=== PATIENT | female | born 1945 | race Caucasian/White ===

== ENCOUNTER → 2016-10-29 | Outpatient (CLI) | payer OTHER ==
[~2016-10-29] MED LIST: ASPEC325; CLOP1TAB15; LISI40TA; METO50TA7; PRAV20TA; PRT/20; TRAM-10
[2016-10-29 12:54] LABS: ESTIMATED AVERAGE GLUCOSE 137 mg/dl; HA1C FLAG Normal (Normal)
== END | disposition home or self-care (01) ==
LOC: C.LABBFT 10:20
PROVIDERS: ATTEND Internal Medicine
DX: E11.8 Type 2 diabetes mellitus with unspecified complications (principal)

== ENCOUNTER → 2017-03-10 | Outpatient (CLI) | payer OTHER ==
[2017-03-10 13:39] LABS: ESTIMATED AVERAGE GLUCOSE 134 mg/dl; HA1C FLAG Normal (Normal)
== END | disposition home or self-care (01) ==
LOC: C.LAB1850 11:30
PROVIDERS: ATTEND Nurse Practitioner Adult Health
DX: E11.49 Type 2 diabetes mellitus with other diabetic neurological complication (principal)

== ENCOUNTER → 2017-04-28 | Outpatient (CLI) | payer OTHER ==
[2017-04-28 12:48] LABS: ALT/SGPT 32 U/L (12-78); AST/SGOT 26 U/L (15-37); BLOOD UREA NITROGEN 33 mg/dl (7-18); BUN/CREATININE RATIO 29.9 (10-20); CALCIUM 9.1 mg/dl (8.5-10.1); CARBON DIOXIDE 27 mmol/L (21-32); CHLORIDE 108 mmol/L (98-107); CHOLESTEROL 147 mg/dl (0-200); GLUCOSE 101 mg/dl (70-99); POTASSIUM 4.9 mmol/L (3.5-5.1); SODIUM 140 mmol/L (136-145)
[2017-04-28 13:00] LABS: CHOLESTEROL/HDL RATIO 3.5; HDL CHOLESTEROL 42 mg/dl; LDL CHOLESTEROL CALCULATED 71 mg/dl; TRIGLYCERIDES 168 mg/dl (0-150); VERY LOW DENSITY LIPOPROT CALC 34 mg/dl
== END | disposition home or self-care (01) ==
LOC: C.LABBFT 07:52
PROVIDERS: ATTEND Internal Medicine
DX: E03.9 Hypothyroidism, unspecified (principal); E78.5 Hyperlipidemia, unspecified; E11.49 Type 2 diabetes mellitus with other diabetic neurological complication

== ENCOUNTER → 2017-04-29 | Outpatient (CLI) | payer OTHER ==
--- NOTE | 2017-04-29 13:55 | DIAGNOSTIC IMAGING REPORT ---
LUMBAR SPINE W/O CONTRAST CLINICAL HISTORY: 72 years-old Female presenting with low back pain, bilateral hip pain radiating down both legs, history of 2 falls in February, no surgery, no history of cancer. TECHNIQUE: Multisequence, multiplanar MR imaging of the lumbar spine was performed without the use of intravenous contrast. IV contrast: None. COMPARISON: None. FINDINGS: Localizer images: Unremarkable. Slightly exaggerated lumbar lordosis with minimal anterolisthesis of L4 on L5. Vertebral bodies otherwise maintain normal height, alignment, and bone marrow signal intensity. Disc desiccation without significant height loss noted at L3-4 and L4-5. Slight increase signal intensity within the intervertebral disc space of L5-S1, nonspecific without evidence of associated endplate edema or paraspinal inflammatory change. Mild multilevel degenerative changes detailed below: Lower thoracic spine: Disc osteophyte complexes resulting in mild effacement of the ventral thecal sac and contouring of the ventral aspect of the cord without impingement. T12-L1: Anterior osteophytosis. No spinal canal or neural foraminal narrowing.. L1-2: Anterior osteophytosis. No spinal canal or neural foraminal narrowing. L2-3: Normal. L3-4: Minimal disc bulge at L3-4 in combination with mild ligamentum flavum thickening and facet arthropathy results in mild circumferential effacement of the thecal sac without evidence of impingement of the cauda equina. Mild bilateral neural foraminal narrowing results. L4-5: Normal. L5-S1: Minimal right eccentric disc bulge at L5-S1 and mild facet arthropathy result in mild right neural foraminal narrowing at L5-S1. Spinal cord ends in good position at inferior endplate of T12. Cauda equina normal. Paraspinal soft tissues normal. Nonspecific subcutaneous edema noted in the lower lumbar region. IMPRESSION: Minimal degenerative changes resulting in mild bilateral neural foraminal narrowing at L3-4 and mild right neural foraminal narrowing at L5-S1. No spinal canal narrowing. Electronically signed by: Nahun Russell M.D. 04/29/2017 1:53 PM Dictated Date/Time: 04/29/2017 1:44 PM
== END | disposition home or self-care (01) ==
LOC: C.MRI 12:43
PROVIDERS: ATTEND Orthopaedic Surgery Orthopaedic Surgery of the Spine
DX: M48.06 Spinal stenosis, lumbar region (principal); Z12.31 Encounter for screening mammogram for malignant neoplasm of breast

== ENCOUNTER → 2017-04-29 | Outpatient (CLI) | payer OTHER ==
--- NOTE | 2017-04-29 12:44 | MAMMOGRAPHY REPORT ---
BILATERAL DIGITAL SCREENING MAMMOGRAM WITH CAD: 04/29/2017 CLINICAL HISTORY: Routine screening. Patient has no complaints. TECHNIQUE: Bilateral CC and MLO views were obtained. Current study was also evaluated with a Compute r Aided Detection (CAD) system. COMPARISON: Comparison is made to exams dated: 03/20/2016 mammogram, 03/16/2014 mammogram, 03/25/2012 [facility] [address], 03/20/2009, and 08/16/2007. BREAST COMPOSITION: There are scattered areas of fibroglandular density in both breasts. FINDINGS: There are a few scattered stable benign-appearing round and punctate microcalcifications in the breasts. Minimal vascular calcification. No suspicious mass, architectural distortion or clust er of suspicious microcalcifications is seen. IMPRESSION: ACR BI-RADS CATEGORY 1: NEGATIVE There is no mammographic evidence of malignancy. A 1 year screening mammogram is recommended. The pa tient will receive written notification of the results. Approximately 10% of breast cancers are not detected with mammography. A negative mammographic report should not delay biopsy if a clinically suggestive mass is present. Jacqueline Reis M.D. ay/:04/29/2017 11:32:48 Field Sales Trainer: Ronit Hoang, [facility] letter sent: Normal 1/2 BI-RADS Code: ACR BI-RADS Category 1: Negative
== END | disposition home or self-care (01) ==
LOC: C.MAMM 10:57
PROVIDERS: ATTEND Internal Medicine
DX: Z12.31 Encounter for screening mammogram for malignant neoplasm of breast (principal)

== ENCOUNTER → 2017-07-03 | Outpatient (CLI) | payer OTHER ==
[2017-07-03 13:01] LABS: ESTIMATED AVERAGE GLUCOSE 128 mg/dl; HA1C FLAG Normal (Normal)
== END | disposition home or self-care (01) ==
LOC: C.LABBFT 10:41
PROVIDERS: ATTEND Nurse Practitioner Adult Health
DX: E11.49 Type 2 diabetes mellitus with other diabetic neurological complication (principal); Z51.81 Encounter for therapeutic drug level monitoring; Z79.4 Long term (current) use of insulin

== ENCOUNTER → 2017-11-26 | Outpatient (CLI) | payer OTHER ==
[~2017-11-26] MED LIST changes: -METO50TA7; +METO50TA8
[2017-11-26 13:16] LABS: ALT/SGPT 23 U/L (12-78); BLOOD UREA NITROGEN 30 mg/dl (7-18); CALCIUM 9.3 mg/dl (8.5-10.1); CARBON DIOXIDE 26 mmol/L (21-32); CHOLESTEROL 140 mg/dl (0-200); CREATININE 1.01 mg/dl (0.60-1.20); GLUCOSE 119 mg/dl (70-99); POTASSIUM 4.7 mmol/L (3.5-5.1); SODIUM 140 mmol/L (136-145)
[2017-11-26 13:20] LABS: HEMOGLOBIN A1C 6.7 % (4.5-5.6)
[2017-11-26 13:30] LABS: AST/SGOT 21 U/L (15-37); LDL CHOLESTEROL CALCULATED 65 mg/dl
== END | disposition home or self-care (01) ==
LOC: C.LABBFT 09:05
PROVIDERS: ATTEND Nurse Practitioner Adult Health
DX: I10 Essential (primary) hypertension (principal); E11.49 Type 2 diabetes mellitus with other diabetic neurological complication; E78.5 Hyperlipidemia, unspecified; E03.9 Hypothyroidism, unspecified

== ENCOUNTER → 2017-12-03 | Outpatient (CLI) | payer OTHER ==
[2017-12-03 14:10] LABS: CREATININE RANDOM URINE 41.8 mg/dl
== END | disposition home or self-care (01) ==
LOC: C.LABBFT 11:21
PROVIDERS: ATTEND Nurse Practitioner Adult Health
DX: I10 Essential (primary) hypertension (principal); E11.49 Type 2 diabetes mellitus with other diabetic neurological complication; Z79.4 Long term (current) use of insulin

== ENCOUNTER → 2017-12-28 | Outpatient (CLI) | payer OTHER ==
--- NOTE | 2017-12-28 10:02 | DIAGNOSTIC IMAGING REPORT ---
L HAND MIN 3 VIEWS ROUTINE CLINICAL HISTORY: Bilateral hand pain. COMPARISON: None FINDINGS: Alignment of left hand is anatomic. No fracture or suspicious lesion is identified. No erosions are identified by radiography. There is moderate joint space narrowing with osteophytosis of multiple interphalangeal joints within the left hand, most pronounced at the second digit PIP joint and third, fourth and fifth digit PIP joints. There is moderate osteoarthritis of the left first carpometacarpal joint. IMPRESSION: 1. No acute fracture. 2. 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 3. No radiographic evidence of an erosive/inflammatory arthropathy. Electronically signed by: Priyank Still M.D. 12/28/2017 10:01 AM Dictated Date/Time: 12/28/2017 9:59 AM
[2017-12-28 10:33] LABS: CALCIUM 9.6 mg/dl (8.5-10.1)
== END | disposition home or self-care (01) ==
LOC: C.RAD1850 09:23
PROVIDERS: ATTEND Internal Medicine Rheumatology
DX: M11.261 Other chondrocalcinosis, right knee (principal); M85.80 Other specified disorders of bone density and structure, unspecified site; E55.9 Vitamin D deficiency, unspecified; M25.561 Pain in right knee; M79.641 Pain in right hand; M19.042 Primary osteoarthritis, left hand

== ENCOUNTER → 2018-05-05 | Outpatient (CLI) | payer OTHER ==
--- NOTE | 2018-05-06 14:57 | MAMMOGRAPHY REPORT ---
BILATERAL DIGITAL SCREENING MAMMOGRAM TOMOSYNTHESIS WITH CAD: 05/05/2018 CLINICAL HISTORY: Routine screening. Patient has no complaints. TECHNIQUE: The study was acquired using full field digital technology and interpreted from soft copy. Breast tomosynthesis in addition to standard 2D mammography was performed. Current study was also ev aluated with a Computer Aided Detection (CAD) system. COMPARISON: Comparison is made to exams dated: 04/29/2017 mammogram, 03/20/2016 mammogram, 03/16/2014 m ammogram, 03/25/2012 mammogram - [facility], 03/20/2009, and 08/16/2007. BREAST COMPOSITION: There are scattered areas of fibroglandular density in both breasts. FINDINGS: No suspicious masses, calcifications, or areas of architectural distortion are noted in either breast . There has been no significant interval change compared to prior exams. Scattered bilateral benign-a ppearing calcifications are not significantly changed. IMPRESSION: ACR BI-RADS CATEGORY 2: BENIGN There is no mammographic evidence of malignancy. A 1 year screening mammogram is recommended.( [id number]) The patient will receive written notification of the results. Some breast cancers are not detected with mammography. A negative mammographic report should not alayna y biopsy if a clinically suggestive mass is present. Ally Maddox M.D. ah/:05/05/2018 15:35:35 Director Strategic Planning: Ne Correa RT(R)(M), [facility] letter sent: Normal 1/2 BI-RADS Code: ACR BI-RADS Category 2: Benign
== END | disposition home or self-care (01) ==
LOC: C.MAMM 10:38
PROVIDERS: ATTEND Internal Medicine
DX: Z12.31 Encounter for screening mammogram for malignant neoplasm of breast (principal)

== ENCOUNTER → 2018-05-24 | Outpatient (CLI) | payer OTHER ==
[2018-05-24 13:43] LABS: HEMOGLOBIN A1C 7.1 % (4.5-5.6)
[2018-05-24 14:00] LABS: ALT/SGPT 24 U/L (12-78); AST/SGOT 18 U/L (15-37); BLOOD UREA NITROGEN 33 mg/dl (7-18); CARBON DIOXIDE 24 mmol/L (21-32); CHOLESTEROL 146 mg/dl (0-200); GLUCOSE 113 mg/dl (70-99); LDL CHOLESTEROL CALCULATED 59 mg/dl; POTASSIUM 4.9 mmol/L (3.5-5.1); SODIUM 138 mmol/L (136-145)
[2018-05-24 14:15] LABS: CREATININE RANDOM URINE 80.3 mg/dl
== END | disposition home or self-care (01) ==
LOC: C.LABBFT 10:20
PROVIDERS: ATTEND Internal Medicine
DX: I10 Essential (primary) hypertension (principal); E11.49 Type 2 diabetes mellitus with other diabetic neurological complication; Z79.4 Long term (current) use of insulin; E78.5 Hyperlipidemia, unspecified; E03.9 Hypothyroidism, unspecified

== ENCOUNTER 2024-05-25 12:28 | Observation (INO) ==
--- NOTE | 2024-05-25 13:03 | Electrocardiogram Report ---
Test Reason : Blood Pressure : */* mmHG Vent. Rate : 75 BPM Atrial Rate : 75 BPM P-R Int : 150 ms QRS Dur : 82 ms QT Int : 402 ms P-R-T Axes : 59 34 59 degrees QTcB Int : 448 ms Normal sinus rhythm Normal ECG When compared with ECG of 20-Jun-2021 09:39, No significant change Confirmed by Margarito Martins ([id number]) on 05/25/2024 1:02:51 PM Referred By: Confirmed By: Margarito Martins
--- NOTE | 2024-05-25 14:09 | XRay Report ---
SINGLE VIEW CHEST CLINICAL HISTORY: Sepsis FINDINGS: An AP, portable, upright chest radiograph is compared to study dated 06/17/2021. The heart i s enlarged. There is prominence of the pulmonary vasculature. Scarring/atelectasis is seen at the cari g bases. No airspace consolidation or large pleural effusion is identified. No pneumothorax is seen. The skeletal structures are osteopenic. There is chronic deformity of the left proximal humerus. A pu nctate radiodense/metallic foreign body projects over the right apex. IMPRESSION: 1. Cardiomegaly with prominence of the pulmonary vasculature. Correlate clinically for evidence of fl uid overload/mild congestive change. 2. No airspace consolidation or large pleural effusion is identified. ACT 112: Negative or not required by law. Electronically signed by: Eber Duran M.D. 05/25/2024 2:07 PM
[2024-05-25 14:41] LABS: iSTAT Creatinine 2.2 mg/dl (0.6-1.3); iSTAT Hemoglobin 11.6 g/dl (12.0-16.0); iSTAT Ionized Calcium 1.36 mmol/l (1.12-1.32); iSTAT Potassium 4.5 mmol/L (3.3-5.0)
[2024-05-25 14:53] LABS: Base Excess VBG -0.4 mEq/L; HCO3 VBG 26 mmol/L; Oxygen Saturation VBG 60.6 %; PCO2 VBG 48 mmHg (38-50); PO2 VBG 34 mmHg; pH VBG 7.34 (7.36-7.41)
[2024-05-25 15:04] LABS: Basophils # (auto) 0.05 K/uL (0.00-0.20); Basophils % (auto) 0.7 %; Eosinophils # (auto) 0.69 K/uL (0.00-0.50); Hemoglobin 10.7 g/dl (12.0-16.0); Immature Granulocytes # (auto) 0.35 K/uL (0.01-0.20); Immature Granulocytes % (auto) 4.6 %; Lymphocytes # (auto) 2.17 K/uL (1.20-3.40); Lymphocytes % (auto) 28.2 %; Mean Corpuscular Hemoglobin 30.1 pg (25.0-34.0); Mean Corpuscular Hgb Conc 32.4 g/dL (32.0-36.0); Mean Corpuscular Volume 92.7 fL (80.0-100.0); Mean Platelet Volume 10.3 fL (9.4-12.4); Monocytes # (auto) 0.38 K/uL (0.11-0.59); Monocytes % (auto) 4.9 %; Neutrophils # (auto) 4.05 K/uL (1.40-6.50); Neutrophils % (auto) 52.6 %; Platelet Count 195 K/uL (130-400); RDW Coefficient of Variation 14.5 % (11.5-14.5); RDW Standard Deviation 49.2 fL (36.4-46.3); Red Blood Count 3.56 M/uL (4.20-5.40); White Blood Count 7.69 K/ul (4.8-10.8)
--- NOTE | 2024-05-25 15:14 | CT Scan Report ---
CT SCAN OF THE BRAIN WITHOUT IV CONTRAST CLINICAL HISTORY: Generalized weakness. COMPARISON STUDY: No priors. TECHNIQUE: Unenhanced axial CT scan of the brain is performed from the vertex to the skull base. A do se lowering technique was utilized adhering to the principles of ALARA. FINDINGS: Brain parenchyma: There is age-related involutional change noting moderate subcortical and periventri cular microangiopathic disease. There is no hemorrhage, mass effect, or evidence of acute territorial ischemia by CT criteria. Cloud-white matter differentiation is preserved. No extra-axial fluid collec tion is seen. Ventricles, sulci, cisterns: Prominent secondary to involutional change. Intracranial vasculature: There is atherosclerotic calcification of the cavernous carotid and vertebr al arteries. Calvarium: Unremarkable. Sinuses and mastoids: A 1.8 cm retention cyst is seen in the left maxillary antrum. The paranasal sin uses are otherwise clear. There are trace mastoid effusions. Orbits: The bony orbits are grossly intact. There are bilateral ocular lens implants. IMPRESSION: There is no hemorrhage, mass effect, or evidence of acute territorial ischemia by CT aftab toney. ACT 112: Negative or not required by law. Electronically signed by: Eber Duran M.D. 05/25/2024 3:12 PM
[2024-05-25 15:17] LABS: Albumin Globulin Ratio 1.1 (0.9-2); Albumin Level 3.6 gm/dl (3.4-5.0); BUN Creatinine Ratio 36.8 (10-20); Bilirubin,Total 0.5 mg/dl (0.2-1.0); Calcium 10.6 mg/dl (8.6-10.3); Creatinine Clr Calc Pharmacy 22.3 ml/min; Est GFR (African American) 24.7 ml/min; Est GFR (Non-African American) 21.3 ml/min; Globulin 3.3 gm/dl (2.5-4.0); Magnesium 2.6 mg/dl (1.7-2.4); Potassium 4.4 mmol/L (3.5-5.1); Total Protein 6.9 gm/dl (6.0-8.3)
[2024-05-25 15:23] LABS: Troponin I High Sensitivity 8.2 pg/ml (0-14)
--- NOTE | 2024-05-25 15:28 | CT Scan Report ---
CT SCAN OF THE ABDOMEN AND PELVIS WITHOUT IV CONTRAST CLINICAL HISTORY: Generalized abdominal pain. Dysuria. Renal insufficiency COMPARISON STUDY: Abdominal ultrasound dated 06/27/2020. TECHNIQUE: CT scan of the abdomen and pelvis is performed from the lung bases to the proximal femora. Images are reviewed in the axial, sagittal, and coronal planes. IV contrast was not administered for this examination due to poor renal function. Note that the examination is suboptimal without oral an d IV contrast. A dose lowering technique was utilized adhering to the principles of ALARA. CT DOSE: 1950.21 mGy.cm FINDINGS: Lung bases: The heart is normal in size and without pericardial effusion. The coronary arteries are d ensely calcified. The lung bases are clear noting bibasilar scarring/atelectasis. Dermal thickening a nd presumed postsurgical change is noted in the left breast. Liver: The unenhanced liver is enlarged, measuring 18.3 cm in length. Attenuation is diffusely dimini shed indicating steatosis. Fatty sparing is seen adjacent to the gallbladder fossa. There is no intra hepatic biliary ductal dilatation. Gallbladder: Unremarkable. Spleen: Normal in size and attenuation. Pancreas: The unenhanced pancreas is atrophic and grossly unremarkable. Adrenal glands: Unremarkable. Kidneys: The unenhanced kidneys demonstrate cortical atrophy and are without hydronephrosis. No renal calculi are identified and no ureteral stone is seen. A 12 mm complex/hyperdense left renal cyst is seen on image #110. There is mild urothelial thickening in the left renal pelvis with surrounding inf iltration seen on axial image #124. Abdominal vasculature: The abdominal aorta is normal in course and caliber noting advanced atheroscle rotic calcification. Bowel: There is no bowel obstruction. Mild fecal retention is seen throughout the colon. The appendix is not identified and reported surgically absent. Peritoneum: There is no intraperitoneal free air or abdominal ascites. There is a fat-containing umbi lical hernia. Lymphadenopathy: None. Pelvic viscera: The bladder, uterus, and adnexa are normal as visualized. Skeletal structures: The skeletal structures are osteopenic. There is moderate lumbosacral spondylosi s. No lytic or blastic lesions are seen. IMPRESSION: 1. There is urothelial thickening in the left renal pelvis with mild surrounding infiltration. Correl ate with clinical findings and urinalysis. If warranted this could be reassessed with a follow-up CT urogram in 3-4 months time. 2. Hepatomegaly and hepatic steatosis. 3. Postsurgical change is suggested in the left breast with overlying dermal thickening. Correlate cl inically. 4. Additional findings as above. ACT 112: Negative or not required by law. Electronically signed by: Eber Duran M.D. 05/25/2024 3:26 PM
[2024-05-25 15:30] LABS: INR 0.9 (0.9-1.1); Partial Thromboplastin Time 28 Seconds (21-31); Prothrombin Time 10.3 Seconds (9.0-12.0)
--- NOTE | 2024-05-25 15:59 | History & Physical Report ---
Date of Service May 25, 2024 Assessment & Plan (1) Acute kidney injury superimposed on CKD: Plan: Admit to [facility] telemetry on pulse oximetry Currently stable and nontoxic-appearing Presented to the ED from her PCPs office with multiple complaints over the past 5 days including generalized weakness, poor oral intake, suprapubic abdominal pain Creatinine noted to be 2.12 today (baseline appears to be near 1.4) Does appear dehydrated on exam Likely due to poor oral intake along with continuing home furosemide and lisinopril No signs of obstruction on CT of the abdomen pelvis Will give light LR at 80 mL/h x 1 bag on admission, hold furosemide for now Will follow UA results as a sample was just obtained prior to admission, high suspicion for UTI Hold lisinopril, dapagliflozin Bilateral SCDs for DVT prophylaxis Heart healthy/DM type II diet with 2 g sodium restriction AM CBC, CMP, mag, PT/INR (2) Generalized weakness: Plan: Patient has been experiencing increased fatigue/generalized weakness over the past 5 days Pathology is likely multifactorial including poor oral intake, MISSY, possible UTI No leukocytosis but Pro-Krzysztof is elevated at 1.50 No focal neuro defects on exam, CT of the head and brain without contrast was negative for acute findings Patient's hemoglobin is down at 10.7 from 11.3 on 05/17/2024, BUN is elevated at 78, patient denies recent signs of GI bleeding but cannot rule out at this time Will obtain anemia workup including iron studies, B12/folic acid Will obtain blood cultures due to significant increase in procalcitonin and h igh suspicion for possible urinary tract infection Will follow UA and order IV antibiotics based on results Will obtain COVID/influenza/RSV screen on admission due to her ongoing symptoms Fall/aspiration precautions, PT/OT consults (3) Constipation: Plan: Patient denies bowel movement for the past 3 days Patient confirms still passing gas, no signs of obstruction on CT abdomen pelvis today Will give IV hydration overnight Start twice daily Colace and daily MiraLAX (4) Chronic heart failure with preserved ejection fraction (HFpEF): Plan: Appears dehydrated on exam Hold home Lasix for now and will give light LR x 1 bag overnight Monitor daily volume status (5) Diabetes mellitus due to underlying condition with diabetic chronic kidney disease: Plan: Monitor BSG ACHS, goal is [id number] Hold metformin, Jardiance, and Farxiga for now Normally takes 40 units p.m. degludec, will start with 10 units twice daily of glargine due to her MISSY and poor oral intake Start CF 50 and CR 15 ACHS for now (6) CAD (coronary artery disease): Plan: No recent chest pain, no acute ST segment T wave changes on EKG Continue home aspirin (7) Hypertension: Plan: Currently stable Can continue home amlodipine and metoprolol Hold lisinopril with MISSY Hold furosemide with dehydration and Plan Patient was discussed Dr. Veliz at the time of admission History of Present Illness Chief Complaint: Generalized weakness, poor oral intake, Primary Care Provider: Bashir Garcia MD Farida is a 79 y/o F with a PMH of hyperlipidemia, type II DM, diabetic neuropathy, CKD, CAD, hypothyroidism, GERD, gout, lumbar spondylosis, and vitamin D deficiency who presented to [facility] ED on 05/25/2024 with multiple complaints including generalized weakness, poor p.o. intake, abdominal pain, and back pain. Patient was reportedly recently treated with Macrobid for possible UTI outpatient. She remained stable in the ED. Labs were significant for creatinine of 2.1 baseline is near 1.4), BUN of 78, calcium of 10.6, mag of 2.6, Pro-Krzysztof 1.50. Chest x-ray was read as cardiomegaly with prominence of pulmonary vascular. Correlate clinically for evidence of fluid overload/mild congestive change. No airspace consolidation or large pleural effusion is identified. CT of the head and brain without contrast was read as negative for acute findings. CT abdomen pelvis without contrast was read as urothelial thickening in the left renal pelvis with mild surrounding infiltration. Correlate with clinical findings and urinalysis. If warranted this could be reassessed with a follow-up CT urogram in 3 to 4 months time. Hep atomegaly and hepatic steatosis. Postsurgical changes suggested in the left breast with overlying dermal thickening. Correlate clinically. Additional findings as above. Prior to admission the patient was ordered 500 mg p.o. ciprofloxacin. Patient was lying in bed in no acute distress at time of exam with her daughter bedside, history is obtained from both. Over the past 5 to 6 days the patient has been experiencing progressive generalized weakness, suprapubic abdominal pain, poor appetite, and chills. Complete a 5-day course of Macrobid yesterday (05/24/2024), for possible UTI. Patient confirms that her symptoms have not improved since completing his course of Macrobid. No recent fevers, chest pain, shortness of breath, orthopnea, cough, nausea/vomiting, lower extremity swelling, or recent trauma. When asked, she does feel as though she is still experiencing dysuria and increased urinary frequency and states that she has been constipated over the past 4 days. Denies recent melena, or bright bloody bowel movements. Still passing gas and has been taking stool softener over the past 3 days. We discussed CODE STATUS, she wishes to be a DNR DNI and for daughter to make medical decisions for her if she cannot make them herself. Please refer to Dr. Veliz's attestation for any changes to the treatment plan Allergies Allergy/AdvReac Type Severity Reaction Status Date / Time cefdinir Allergy Intermediate Rash Verified 05/25/24 10:59 latex Allergy Intermediate Rash Verified 05/25/24 10:59 atorvastatin [From Lipitor] AdvReac Intermediate Joint Pain Verified 05/25/24 10:59 ezetimibe [From Vytorin] AdvReac Intermediate LEG PAIN Verified 05/25/24 10:59 simvastatin AdvReac Intermediate LEG Verified 05/25/24 10:59 PAIN/COULD NOT WALK tramadol AdvReac Intermediate constipatio Verified 05/25/24 10:59 n Home Medications Medication Instructions Recorded Confirmed Type cholecalciferol (vitamin D3) 25 1,000 units PO QAM 04/28/19 05/25/24 History mcg (1,000 unit) capsule vit A 1,000 unit-C 60 mg-E 30 1 tab PO QAM 04/28/19 05/25/24 History unit-zinc oxid-selenium AA-copper tablet (Vision Formula(E-L-R-Zn-Se-Cu)) aspirin 81 mg tablet,delayed 81 mg PO HS 06/18/21 05/25/24 History release (Adult Low Dose Aspirin) anastrozole 1 mg tablet 1 mg PO QAM 09/06/21 05/25/24 History calcium carbonate (Calcium 600) 600 mg PO QAM 09/06/21 05/25/24 History OneTouch Verio Flex meter #1 ea 09/08/21 05/19/24 Rx (blood-glucose meter) OneTouch Verio test strips (blood #400 ea 09/08/21 05/19/24 Rx sugar diagnostic) famotidine 20 mg tablet 20 mg PO QPM #100 tabs 03/23/23 05/25/24 Rx omeprazole 20 mg capsule,delayed 20 mg PO QAM #100 caps 03/23/23 05/25/24 Rx release amlodipine 5 mg tablet 5 mg PO QAM #100 tabs 05/08/23 05/25/24 Rx BD Ultra-Fine Shante Pen Needle 32 #400 ea 05/19/23 05/19/24 Rx gauge x 5/32" (pen needle, diabetic) metoprolol succinate 50 mg 50 mg PO QAM #100 tabs 05/26/23 05/25/24 Rx tablet,extended release 24 hr gabapentin 400 mg capsule 400 mg PO TID #270 caps 06/23/23 05/25/24 Rx insulin aspart U-100 100 unit/mL 18 unit subcut TIDM 07/27/23 05/25/24 History (3 mL) subcutaneous pen (Novolog FlexPen U-100 Insulin aspart) furosemide 40 mg tablet 80 mg (2 x 40 mg) PO QAM #100 tabs 12/08/23 05/25/24 Rx ferrous sulfate 325 mg (65 mg 325 mg PO Q OTHER DAY 01/12/24 05/25/24 History iron) tablet (Feosol) flash glucose sensor (FreeStyle 01/12/24 05/19/24 History Lexx 2 Sensor kit) insulin degludec 100 unit/mL (3 40 unit (0.4 mL) subcut QPM #45 mL 03/01/24 05/25/24 Rx mL) subcutaneous pen (Tresiba FlexTouch U-100 insulin) lisinopril 20 mg tablet 20 mg PO QAM #100 tabs 04/25/24 05/25/24 Rx diclofenac sodium 75 mg 75 mg PO BID #60 tabs 04/26/24 05/25/24 Rx tablet,delayed release allopurinol 100 mg tablet 200 mg PO QAM 05/25/24 05/25/24 History biotin 5,000 mcg sublingual tablet 5,000 mcg sublingual QAM 05/25/24 05/25/24 History cyanocobalamin (vitamin B-12) 2,500 mcg sublingual QAM 05/25/24 05/25/24 History 2,500 mcg sublingual tablet (Vitamin B-12) dapagliflozin propanediol 5 mg 5 mg PO QAM 05/25/24 05/25/24 History tablet (Farxiga) empagliflozin 10 mg tablet 10 mg PO QAM 05/25/24 05/25/24 History (Jardiance) levothyroxine 50 mcg tablet 50 mcg PO DAILYBB 05/25/24 05/25/24 History metformin 500 mg tablet,extended 250 mg PO QAM 05/25/24 05/25/24 History release 24 hr vitamin A 2,400 mcg capsule 2,400 mcg PO QAM 05/25/24 05/25/24 History Past Med/Surg History Problem List (Updated 05/25/24 @ 19:28 by Jonas Dougherty MD) Acute UTI (Acute) Constipation Acute kidney injury superimposed on CKD (Acute) Generalized weakness Chronic heart failure with preserved ejection fraction (HFpEF) Diabetes mellitus due to underlying condition with diabetic chronic kidney disease Type 2 diabetes mellitus, with long-term current use of insulin Current use of proton pump inhibitor Gout Diabetic peripheral neuropathy Hyperlipidemia Hypothyroid Vitamin D deficiency Degenerative arthritis of knee, bilateral Lumbar spondylosis Spondylolisthesis, lumbar region Intraductal carcinoma of breast Diabetes CAD (coronary artery disease) follows with Dr. Martins Osteoarthritis S/P lumpectomy, left breast (06/25/21) Left Breast Lumpectomy with Localization, Left Axillary Calvin Lymph Node Biopsy Dr. Eldridge 06-25-21 Mucinous carcinoma of left breast Lumbar radicular pain Malignant neoplasm of central portion of left breast in female, estrogen receptor positive (Chronic 05/31/21) Lymphedema of arm (Chronic) Spinal stenosis of lumbar region Diastolic CHF Moderate mitral valve regurgitation Colon cancer screening Postnasal drip (Chronic) Cerumen impaction (Acute) Hearing loss Adult situational stress disorder Neuropathy Uncontrolled type 2 diabetes mellitus with diabetic neuropathy Diabetes mellitus type 2, insulin dependent Medical History Spinal stenosis HX: breast cancer LEFT 2020>SURGERY (LIMB RESTRICTION) Hx of gout GERD (gastroesophageal reflux disease) controlled (per dtr, no meds at present) DM type 2 (diabetes mellitus, type 2) IDDM History of skin cancer removed from right arm Hearing deficit BL CASH Arthritis Osteopenia Urethral diverticulum Hypertension Surgical History History of tooth extraction H/O heart artery stent x 2 (2006) AT [facility] History of colonoscopy History of left breast biopsy History of cataract surgery RT/LEFT History of carpal tunnel surgery RT/LEFT History of tonsillectomy Hx of appendectomy Family History Sister Ovarian cancer Breast cancer Mother , 58yo Diabetes Hypertension Daughter Diabetes Hypertension Dyslipidemia Father , early 90s Hypertension Skin cancer Diabetes Natural with unknown cause Sister Natural with unknown cause Dementia Sister Diabetes Brain tumor Benign Coronary heart disease Daughter No problems noted. Son Diabetes Other No family history of adverse response to anesthesia Denies family history of Prostate cancer Myocardial infarction Colorectal cancer Stroke Social History Smoking Status: Never smoker Second Hand Exposure: No; Do You Dip or Chew Tobacco: No; Hx Alcohol Use: No Hx Substance Use: No Preferred Language: Niuean Communication Ability: Effective Visual Impairment: No Limitations Hearing Ability: Hard of Hearing Project Specialist Required: No Beliefs That Will Affect Care: None marital status: Current Living Situation: Family Current Living Situation Comment: WITH DAUGHTER current occupational status: retired current occupation: Worked in [employer] How many Children do You have: 3 Other Information That Helps Us Care for You: No Feels Safe at Home: Yes Safety Concerns: Feels Safe At This Time Childhood Exposure to Second-Hand Smoke: No Diet: diabetic during the past year weight has: remained stable Seatbelt Use: always Assistive Devices: Glasses, Hearing Aid - Bilateral and Walker Assistive Devices Comment: Daughter took home glasses and bilateral hearing aids Physical Exam Physical Exam: Physical Exam: General: In no acute distress, stated age, appears generally ill but nontoxic-appearing HEENT: Normocephalic, atraumatic, no scleral icterus, pupils around round, sy mmetrical, and reactive to light, dry mucus membranes, trachea midline, no thyromegaly Chest/Pulm: No respiratory distress, symmetrical chest expansion, clear breath sounds throughout Cardiac: RRR, no murmurs noted Abdomen: Negative for ascites and bruising, normoactive bowel sounds, soft, mildly tender to palpation in the suprapubic region otherwise nontender Musculoskeletal: Symmetrical and without signs of acute trauma, upper and lower extremities with full ROM, no atrophy, spasticity, or flaccidity Extremities: Radial, dorsalis pedis, and posterior tibial pulses are intact and symmetrical, no edema noted in the BL LE's Skin: Warm, dry, no rashes , lesions, or scars noted Neuro: Alert and oriented to person, place, month, year, and president, no focal defects, no tremors noted Psych: No acute distress, calm and cooperative during the exam Results & Data Results & Data Vital Signs (Past 12 Hours) Vital Signs Temp Pulse Resp BP Pulse Ox O2 Del Method 05/25/24 14:03 71 14 95 Room Air 05/25/24 14:00 112/68 05/25/24 13:57 67 14 94 Room Air 05/25/24 13:48 67 13 93 05/25/24 13:39 69 05/25/24 13:33 68 18 94 05/25/24 13:30 137/64 05/25/24 13:30 137/64 05/25/24 13:27 68 21 93 05/25/24 13:15 139/60 05/25/24 12:34 36.2 C L 87 20 143/65 H 94 Room Air Laboratory Results Abnormal lab results 05/25/24 05/25/24 Range/Units 14:28 14:32 RBC 3.56 L (4.20-5.40) M/uL Hgb 10.7 L (12.0-16.0) g/dl POC Hgb 11.6 L (12.0-16.0) g/dl Hct 33.0 L (37.0-47.0) % POC Hct 34 L (37-47) % RDW Std Deviation 49.2 H (36.4-46.3) fL Eos # (Auto) 0.69 H (0.00-0.50) K/uL Immature Gran # (Auto) 0.35 H (0.01-0.20) K/uL VBG pH 7.34 L (7.36-7.41) POC Sodium 132 L (135-144) mmol/L Sodium 132 L (136-145) mmol/L POC Chloride 99 L (101-112) mmol/L Chloride 97 L (98-107) mmol/L POC Anion Gap 13.0 L (16-25) mmol/L POC BUN 72 H (7-18) mg/dl BUN 78 H (6-23) mg/dl Creatinine 2.12 H (0.6-1.2) mg/dl POC Creatinine 2.2 H (0.6-1.3) mg/dl BUN/Creatinine Ratio 36.8 H (10-20) Glucose 258 H (70-99(Fasting)) mg/dl POC Glucose (other) 253 H (70-99) mg/dl Calcium 10.6 H (8.6-10.3) mg/dl POC Ioniz Calcium Chen 1.36 H (1.12-1.32) mmol/l Magnesium 2.6 H (1.7-2.4) mg/dl B-Natriuretic Peptide 211 H (0-100) pg/ml Procalcitonin 1.50 H (0-0.5) ng/ml Diagnostic Findings Chest X-Ray 05/25/24 13:00 SINGLE VIEW CHEST CLINICAL HISTORY: Sepsis FINDINGS: An AP, portable, upright chest radiograph is compared to study dated 06/17/2021. The heart is enlarged. There is prominence of the pulmonary vasculature. Scarring/atelectasis is seen at the lung bases. No airspace consolidation or large pleural effusion is identified. No pneumothorax is seen. The skeletal structures are osteopenic. There is chronic deformity of the left proximal humerus. A punctate radiodense/metallic foreign body projects over the right apex. IMPRESSION: 1. Cardiomegaly with prominence of the pulmonary vasculature. Correlate clinically for evidence of fluid overload/mild congestive change. 2. No airspace consolidation or large pleural effusion is identified. ACT 112: Negative or not required by law. Electronically signed by: Eber Duran M.D. 05/25/2024 2:[address] 05/25/24 13:00 CT SCAN OF THE BRAIN WITHOUT IV CONTRAST CLINICAL HISTORY: Generalized weakness. COMPARISON STUDY: No priors. TECHNIQUE: Unenhanced axial CT scan of the brain is performed from the vertex to the skull base. A dose lowering technique was utilized adhering to the principles of ALARA. FINDINGS: Brain parenchyma: There is age-related involutional change noting moderate subcortical and periventricular microangiopathic disease. There is no hem orrhage, mass effect, or evidence of acute territorial ischemia by CT criteria. Cloud-white matter differentiation is preserved. No extra-axial fluid collection is seen. Ventricles, sulci, cisterns: Prominent secondary to involutional change. Intracranial vasculature: There is atherosclerotic calcification of the cavernous carotid and vertebral arteries. Calvarium: Unremarkable. Sinuses and mastoids: A 1.8 cm retention cyst is seen in the left maxillary antrum. The paranasal sinuses are otherwise clear. There are trace mastoid effusions. Orbits: The bony orbits are grossly intact. There are bilateral ocular lens implants. IMPRESSION: There is no hemorrhage, mass effect, or evidence of acute territorial ischemia by CT criteria. ACT 112: Negative or not required by law. Electronically signed by: Eber Duran M.D. 05/25/2024 3:12 PM Abdomen/Pelvis CT 05/25/24 14:31 CT SCAN OF THE ABDOMEN AND PELVIS WITHOUT IV CONTRAST CLINICAL HISTORY: Generalized abdominal pain. Dysuria. Renal insufficiency COMPARISON STUDY: Abdominal ultrasound dated 06/27/2020. TECHNIQUE: CT scan of the abdomen and pelvis is performed from the lung bases to the proximal femora. Images are reviewed in the axial, sagittal, and coronal planes. IV contrast was not administered for this examination due to poor renal function. Note that the examination is suboptimal without oral and IV contrast. A dose lowering technique was utilized adhering to the principles of ALARA. CT DOSE: 1950.21 mGy.cm FINDINGS: Lung bases: The heart is normal in size and without pericardial effusion. The coronary arteries are densely calcified. The lung bases are clear noting bibasilar scarring/atelectasis. Dermal thickening and presumed postsurgical change is noted in the left breast. Liver: The unenhanced liver is enlarged, measuring 18.3 cm in length. Attenuation is diffusely diminished indicating steatosis. Fatty sparing is seen adjacent to the gallbladder fossa. There is no intrahepatic biliary ductal dilatation. Gallbladder: Unremarkable. Spleen: Normal in size and attenuation. Pancreas: The unenhanced pancreas is atrophic and grossly unremarkable. Adrenal glands: Unremarkable. Kidneys: The unenhanced kidneys demonstrate cortical atrophy and are without hydronephrosis. No renal calculi are identified and no ureteral stone is seen. A 12 mm complex/hyperdense left renal cyst is seen on image #110. There is mild urothelial thickening in the left renal pelvis with surrounding infiltration seen on axial image #124. Abdominal vasculature: The abdominal aorta is normal in course and caliber noting advanced atherosclerotic calcification. Bowel: There is no bowel obstruction. Mild fecal retention is seen throughout the colon. The appendix is not identified and reported surgically absent. Peritoneum: There is no intraperitoneal free air or abdominal ascites. There is a fat-containing umbilical hernia. Lymphadenopathy: None. Pelvic viscera: The bladder, uterus, and adnexa are normal as visualized. Skeletal structures: The skeletal structures are osteopenic. There is moderate lumbosacral spondylosis. No lytic or blastic lesions are seen. IMPRESSION: 1. There is urothelial thickening in the left renal pelvis with mild surrounding infiltration. Correlate with clinical findings and urinalysis. If warranted this could be reassessed with a follow-up CT urogram in 3-4 months time. 2. Hepatomegaly and hepatic steatosis. 3. Postsurgical change is suggested in the left breast with overlying dermal thickening. Correlate clinically. 4. Additional findings as above. ACT 112: Negative or not required by law. Electronically signed by: Eber Duran M.D. 05/25/2024 3:26 PM ECG Additional Comments: Normal sinus rhythm Normal ECG When compared with ECG of 20-Jun-2021 09:39, No significant change Confirmed by Margarito Martins ([id number]) on 05/25/2024 1:02:51 PM Code Status & VTE Plan Code Status DNR/DNI VTE Prophylaxis Plan VTE Prophylaxis will be ordered: Yes Supervising Physician Co-Signing Physician Notes I personally saw and examined the patient. I verified all valencia points and agree with Tai Vargas PA-C with the following exceptions and/or additions: 79 year old female presents to the ER with generalized weakness, poor appetite and chills. Progressively getting worse over the last week. Recently dysuria treated with Macrobid although culture at that time with mixed samy. Dysuria has not returned but having some suprapubic tenderness O/E HS RRR, no murmurs, Chest CTAB, Abdo suprapubic tenderness, no rebound or guarding, No CVA tenderness A/P UTI - suspect this is the cause of her recent decline in functioning. suspected based on prior symptoms of dysuria treated with Macrobid (UA similar to then but with increased urine WBC), suprapubic tenderness on exam, decreased ambulation and generalized weakness and urothelial thickening on CT. Given prior severe skin rash to cefdinir will start on ciprofloxacin pending urine culture results. Complicated due to higher than bladder. No CVA tenderness on exam to suspect pyelonephritis and not septic therefore blood cultures not taken. MISSY - agree with IV fluids, suspect increased swelling in lower extremities from decreased ambulation. PT/OT. Hold lisinopril and furosemide. Diabetes - consider discontinuing SGLT2 inhibitor permanently if having frequent UTIs. PG Care Time/CCT Total # of Minutes Spent Total Time Spent with Patient: Total time spent is greater than 50% in coordination of care (as documented) at patient's floor/unit and/or counseling patient: C[place] [address] INT INP/OBS CARE 2/55MIN Patient Type Established Medical Decision Making Moderate Complexity Diagnoses Acute kidney injury superimposed on CKD N17.9; N18.9 Generalized weakness R53.1 Constipation K59.00 Chronic heart failure with preserved ejection fraction (HFpEF) I50.32 Diabetes mellitus due to underlying condition with diabetic chronic kidney disease E08.22 CAD (coronary artery disease) I25.10 Hypertension I10
[2024-05-25] MEDS ORDERED: DEXTROSE 50% 50 ML SYRINGE IV PRN (16:00)
[2024-05-25] MEDS ORDERED: GLUCOSE 10 TAB/TUBE PO PRN (16:00)
[2024-05-25] MEDS ORDERED: GLUCAGON FOR INJ 1 MG VIAL SQ PRN (16:00)
[2024-05-25] MEDS ORDERED: GLUCOSE 40% GEL 15 GM TUBE PO PRN (16:00)
[2024-05-25] MEDS ORDERED: CARBOHYDRATES FOR HYPOGLYCEMIA PO PRN (16:00)
[2024-05-25] MEDS: CIPROFLOXACIN 500 MG TAB PO STA (16:33)
[2024-05-25 16:34] LABS: Appearance Urine Clear (Clear); Bacteria Urine Automated None Seen (None Seen); Bilirubin Urine Negative (Negative); Blood Urine Negative (Negative); Color Urine Yellow; Glucose Urine UA 2+ (Negative); Ketones Urine Negative (Negative); Leukocyte Esterase Urine 3+ (Negative); Nitrite Urine Negative (Negative); Protein Urine Negative (Negative); RBC Urine Automated 0-2 /hpf (0-2); Specific Gravity Urine 1.011 (1.000-1.030); Urobilinogen Urine Negative (Negative); WBC Urine Automated 21-50 /hpf (0-5)
[2024-05-25] MEDS: DOCUSATE SODIUM 100 MG CAP PO ONE (17:09)
[2024-05-25] MEDS: PANTOprazole 40 MG in SYRINGE 0 ML IV ONE (17:11)
[2024-05-25 17:16] LABS: Ferritin 293.5 ng/ml (8-388)
[2024-05-25] MEDS: LACTATED RINGER'S 1,000 ML IV SCH (17:30)
[2024-05-25 17:53] LABS: Folate (Folic Acid),Ser orPlas 7.98 ng/ml (>5.38)
[2024-05-25 17:54] LABS: Vitamin B12 > 1500 pg/ml (180-914)
[2024-05-25 18:15] LABS: Influenza A virus by PCR Negative (Neg); Influenza B virus by PCR Negative (Neg); RSV by PCR Negative (Neg); SARS CoV2 RNA(COVID-19) Ceph NEGATIVE (Negative)
--- NOTE | 2024-05-25 19:28 | Emergency Department Note ---
History of Present Illness General Chief complaint: Referred by Doctor Stated complaint: FATIGUE, CONSTIPATION, REG BY DOC Time Seen by Provider: 05/25/24 12:59 History of Present Illness Provider complaint: Weakness Maximum Pain Intensity: 8 79-year-old female presents emergency department for weakness. Patient reports she has been feeling weak for the last 5 days. She states she cannot eat. She reports she has been having abdominal pain. She reports she is recent been treated for UTI. She reports no fevers. No nausea vomiting diarrhea chest pain difficulty breathing melena hematochezia hematuria. Home Medications Medication Instructions Recorded Confirmed Type cholecalciferol (vitamin D3) 25 1,000 units PO QAM 04/28/19 05/25/24 History mcg (1,000 unit) capsule vit A 1,000 unit-C 60 mg-E 30 1 tab PO QAM 04/28/19 05/25/24 History unit-zinc oxid-selenium AA-copper tablet (Vision Formula(V-[id number]-Cu)) aspirin 81 mg tablet,delayed 81 mg PO HS 06/18/21 05/25/24 History release (Adult Low Dose Aspirin) anastrozole 1 mg tablet 1 mg PO QAM 09/06/21 05/25/24 History calcium carbonate (Calcium 600) 600 mg PO QAM 09/06/21 05/25/24 History OneTouch Verio Flex meter #1 ea 09/08/21 05/19/24 Rx (blood-glucose meter) OneTouch Verio test strips (blood #400 ea 09/08/21 05/19/24 Rx sugar diagnostic) famotidine 20 mg tablet 20 mg PO QPM #100 tabs 03/23/23 05/25/24 Rx omeprazole 20 mg capsule,delayed 20 mg PO QAM #100 caps 03/23/23 05/25/24 Rx release amlodipine 5 mg tablet 5 mg PO QAM #100 tabs 05/08/23 05/25/24 Rx BD Ultra-Fine Shante Pen Needle 32 #400 ea 05/19/23 05/19/24 Rx gauge x 5/32" (pen needle, diabetic) metoprolol succinate 50 mg 50 mg PO QAM #100 tabs 05/26/23 05/25/24 Rx tablet,extended release 24 hr gabapentin 400 mg capsule 400 mg PO TID #270 caps 06/23/23 05/25/24 Rx insulin aspart U-100 100 unit/mL 18 unit subcut TIDM 07/27/23 05/25/24 History (3 mL) subcutaneous pen (Novolog FlexPen U-100 Insulin aspart) furosemide 40 mg tablet 80 mg (2 x 40 mg) PO QAM #100 tabs 12/08/23 05/25/24 Rx ferrous sulfate 325 mg (65 mg 325 mg PO Q OTHER DAY 01/12/24 05/25/24 History iron) tablet (Feosol) flash glucose sensor (FreeStyle 01/12/24 05/19/24 History Lexx 2 Sensor kit) insulin degludec 100 unit/mL (3 40 unit (0.4 mL) subcut QPM #45 mL 03/01/24 05/25/24 Rx mL) subcutaneous pen (Tresiba FlexTouch U-100 insulin) lisinopril 20 mg tablet 20 mg PO QAM #100 tabs 04/25/24 05/25/24 Rx diclofenac sodium 75 mg 75 mg PO BID #60 tabs 04/26/24 05/25/24 Rx tablet,delayed release allopurinol 100 mg tablet 200 mg PO QAM 05/25/24 05/25/24 History biotin 5,000 mcg sublingual tablet 5,000 mcg sublingual QAM 05/25/24 05/25/24 History cyanocobalamin (vitamin B-12) 2,500 mcg sublingual QAM 05/25/24 05/25/24 History 2,500 mcg sublingual tablet (Vitamin B-12) dapagliflozin propanediol 5 mg 5 mg PO QAM 05/25/24 05/25/24 History tablet (Farxiga) empagliflozin 10 mg tablet 10 mg PO QAM 05/25/24 05/25/24 History (Jardiance) levothyroxine 50 mcg tablet 50 mcg PO DAILYBB 05/25/24 05/25/24 History metformin 500 mg tablet,extended 250 mg PO QAM 05/25/24 05/25/24 History release 24 hr vitamin A 2,400 mcg capsule 2,400 mcg PO QAM 05/25/24 05/25/24 History Allergies Allergy/AdvReac Type Severity Reaction Status Date / Time cefdinir Allergy Intermediate Rash Verified 05/25/24 10:59 latex Allergy Intermediate Rash Verified 05/25/24 10:59 atorvastatin [From Lipitor] AdvReac Intermediate Joint Pain Verified 05/25/24 10:59 ezetimibe [From Vytorin] AdvReac Intermediate LEG PAIN Verified 05/25/24 10:59 simvastatin AdvReac Intermediate LEG Verified 05/25/24 10:59 PAIN/COULD NOT WALK tramadol AdvReac Intermediate constipatio Verified 05/25/24 10:59 n Past Med/Surg History Problem List (Updated 05/25/24 @ 19:28 by Jonas Dougherty MD) Acute UTI (Acute) Constipation Acute kidney injury superimposed on CKD (Acute) Generalized weakness Chronic heart failure with preserved ejection fraction (HFpEF) Diabetes mellitus due to underlying condition with diabetic chronic kidney disease Type 2 diabetes mellitus, with long-term current use of insulin Current use of proton pump inhibitor Gout Diabetic peripheral neuropathy Hyperlipidemia Hypothyroid Vitamin D deficiency Degenerative arthritis of knee, bilateral Lumbar spondylosis Spondylolisthesis, lumbar region Intraductal carcinoma of breast Diabetes CAD (coronary artery disease) follows with Dr. Martins Osteoarthritis S/P lumpectomy, left breast (06/25/21) Left Breast Lumpectomy with Localization, Left Axillary [place] Lymph Node Biopsy Dr. Eldridge 06-25-21 Mucinous carcinoma of left breast Lumbar radicular pain Malignant neoplasm of central portion of left breast in female, estrogen receptor positive (Chronic 05/31/21) Lymphedema of arm (Chronic) Spinal stenosis of lumbar region Diastolic CHF Moderate mitral valve regurgitation Colon cancer screening Postnasal drip (Chronic) Cerumen impaction (Acute) Hearing loss Adult situational stress disorder Neuropathy Uncontrolled type 2 diabetes mellitus with diabetic neuropathy Diabetes mellitus type 2, insulin dependent Medical History Spinal stenosis HX: breast cancer LEFT 2020>SURGERY (LIMB RESTRICTION) Hx of gout GERD (gastroesophageal reflux disease) controlled (per dtr, no meds at present) DM type 2 (diabetes mellitus, type 2) IDDM History of skin cancer removed from right arm Hearing deficit BL CASH Arthritis Osteopenia Urethral diverticulum Hypertension Surgical History History of tooth extraction H/O heart artery stent x 2 (2005) AT [facility] History of colonoscopy History of left breast biopsy History of cataract surgery RT/LEFT History of carpal tunnel surgery RT/LEFT History of tonsillectomy Hx of appendectomy Family History Sister Ovarian cancer Breast cancer Mother , 58yo Diabetes Hypertension Daughter Diabetes Hypertension Dyslipidemia Father , early 90s Hypertension Skin cancer Diabetes Natural with unknown cause Sister Natural with unknown cause Dementia Sister Diabetes Brain tumor Benign Coronary heart disease Daughter No problems noted. Son Diabetes Other No family history of adverse response to anesthesia Denies family history of Prostate cancer Myocardial infarction Colorectal cancer Stroke Social History Smoking Status: Never smoker Second Hand Exposure: No; Do You Dip or Chew Tobacco: No; Hx Alcohol Use: No Hx Substance Use: No Preferred Language: Italian Communication Ability: Effective Visual Impairment: No Limitations Hearing Ability: Hard of Hearing Testing And Regulating Chief Required: No Beliefs That Will Affect Care: None marital status: Current Living Situation: Family Current Living Situation Comment: WITH DAUGHTER current occupational status: retired current occupation: Worked in [employer] How many Children do You have: 3 Feels Safe at Home: Yes Childhood Exposure to Second-Hand Smoke: No Diet: diabetic during the past year weight has: remained stable Seatbelt Use: always Assistive Devices: Glasses and Hearing Aid - Bilateral Physical Exam Vital Signs Vital Signs - 24 hr 05/25/24 12:34 05/25/24 13:15 05/25/24 13:27 Temperature 36.2 C L Temperature Source Temporal Artery Scan Pulse Rate 87 68 Pulse Rate from SpO2 Sensor 68 Respiratory Rate 20 21 Blood Pressure 143/65 H 139/60 Blood Pressure Mean 91 85 Pulse Oximetry 94 93 Oxygen Delivery Method Room Air Sepsis Recent Fever Within 48 Hours No Sepsis New/Unexplained Change in Mental Status N/A Sepsis Action Taken by Nursing No Action Required 05/25/24 13:30 05/25/24 13:30 05/25/24 13:33 Temperature Temperature Source Pulse Rate 68 Pulse Rate from SpO2 Sensor 68 Respiratory Rate 18 Blood Pressure 137/64 137/64 Blood Pressure Mean 93 93 Pulse Oximetry 94 Oxygen Delivery Method Sepsis Recent Fever Within 48 Hours Sepsis New/Unexplained Change in Mental Status Sepsis Action Taken by Nursing 05/25/24 13:39 05/25/24 13:48 05/25/24 13:57 Temperature Temperature Source Pulse Rate 69 67 67 Pulse Rate from SpO2 Sensor 68 68 Respiratory Rate 13 14 Blood Pressure Blood Pressure Mean Pulse Oximetry 93 94 Oxygen Delivery Method Room Air Sepsis Recent Fever Within 48 Hours Sepsis New/Unexplained Change in Mental Status Sepsis Action Taken by Nursing 05/25/24 14:00 05/25/24 14:03 Temperature Temperature Source Pulse Rate 71 Pulse Rate from SpO2 Sensor 70 Respiratory Rate 14 Blood Pressure 112/68 Blood Pressure Mean 91 Pulse Oximetry 95 Oxygen Delivery Method Room Air Sepsis Recent Fever Within 48 Hours Sepsis New/Unexplained Change in Mental Status Sepsis Action Taken by Nursing Physical Exam GENERAL: oriented to person, place, and time. appears well-developed and well- nourished. HENT: Exam performed. - Head: Normocephalic and atraumatic. EYES: Conjunctivae and EOM are normal. Right eye exhibits no discharge. Left eye exhibits no discharge. No scleral icterus. NECK: Normal range of motion. Neck supple. No JVD present. CV: Normal rate, regular rhythm, normal heart sounds and intact distal pulses. There is no peripheral edema. Palpable radial pulses bue. PULM/CHEST: Effort normal and breath sounds normal. No respiratory distress. No stridor. no wheezes. no rales. ABD: The abdomen is soft. There is no tenderness. NEURO: Motor and sensation grossly intact. SKIN: Skin is warm and dry. He is not diaphoretic. PSYCH: normal mood and affect. Behavior is normal. Judgment and thought content normal. Course Course 1259: The patient was evaluated in room C6. A complete history and physical exam was performed Cardiac monitoring: An order was placed for continuous cardiac monitoring. The monitor shows a rate of 70 with sinus rhythm interpreted by mo 1545:Vital signs stable. Labs show white blood cell count 7.69 hemoglobin 10.7 coagulation studies within normal limits. VBG 7.34 pCO2 48. Creatinine 2.12. Baseline creatinine 1.3-1.4. Urinalysis is still pending. COVID and RSV negative. CT of the head within normal limits. CT abdomen pelvis shows possible inflammation of the bladder. Patient will be empirically treated with Cipro 500 orally and admitted to the [facility] hospitalist team. Administered Medications Lactated Ringer's (Lr) 1,000 mls @ 80 mls/hr IV .[id number] HATTIE Stop: 05/26/24 04:59 Last Admin: 05/25/24 17:30 Dose: 80 mls/hr Documented By: CHRISTIE Discontinued Medications Ciprofloxacin (Ciprofloxacin 500 Mg Tab) 500 mg PO NOW STA Stop: 05/25/24 15:41 Last Admin: 05/25/24 16:33 Dose: Not Given Documented By: CHRISTIE Docusate Sodium (Docusate Sodium 100 Mg Cap) 100 mg PO NOW ONE Stop: 05/25/24 16:30 Last Admin: 05/25/24 17:09 Dose: 100 mg Documented By: CHRISTIE Pantoprazole Sodium 40 mg/ (Syringe) 10 mls @ 5 mls/min IV NOW ONE Stop: 05/25/24 16:23 Last Admin: 05/25/24 17:11 Dose: 5 mls/min Documented By: CHRISTIE Medical Decision Making Medical Records Attestation: I reviewed the patient's medical records. External medical records reviewed. Patient was seen by her PCP today and they were referred to the emergency department for 4 to 5 days of difficulty breathing with exertion abdominal pain and a recent UTI. Urine culture from May 19 did not grow out any organisms. Patient's baseline creatinine usually once 1.3-1.4. Laboratory Data Attestation: I reviewed the patient's lab results. 05/25/24 14:32 05/25/24 14:32 Lab Results 05/25/24 05/25/24 Range/Units 14:28 14:32 WBC 7.69 (4.8-10.8) K/ul RBC 3.56 L (4.20-5.40) M/uL Hgb 10.7 L (12.0-16.0) g/dl POC Hgb 11.6 L (12.0-16.0) g/dl Hct 33.0 L (37.0-47.0) % POC Hct 34 L (37-47) % MCV 92.7 (80.0-100.0) fL MCH 30.1 (25.0-34.0) pg MCHC 32.4 (32.0-36.0) g/dL RDW Std Deviation 49.2 H (36.4-46.3) fL RDW Coeff of Micheal 14.5 (11.5-14.5) % Plt Count 195 (130-400) K/uL MPV 10.3 (9.4-12.4) fL Immature Gran % (Auto) 4.6 % Neut % (Auto) 52.6 % Lymph % (Auto) 28.2 % Park % (Auto) 4.9 % Eos % (Auto) 9.0 % Baso % (Auto) 0.7 % Neut # (Auto) 4.05 (1.40-6.50) K/uL Lymph # (Auto) 2.17 (1.20-3.40) K/uL Park # (Auto) 0.38 (0.11-0.59) K/uL Eos # (Auto) 0.69 H (0.00-0.50) K/uL Baso # (Auto) 0.05 (0.00-0.20) K/uL Immature Gran # (Auto) 0.35 H (0.01-0.20) K/uL PT 10.3 (9.0-12.0) Seconds INR 0.9 (0.9-1.1) APTT 28 (21-31) Seconds PTT Ratio 1.0 VBG pH 7.34 L (7.36-7.41) VBG pCO2 48 (38-50) mmHg VBG pO2 34 mmHg VBG HCO3 26 mmol/L VBG O2 Saturation 60.6 % VBG Base Excess -0.4 mEq/L POC Sodium 132 L (135-144) mmol/L Sodium 132 L (136-145) mmol/L POC Potassium 4.5 (3.3-5.0) mmol/L Potassium 4.4 (3.5-5.1) mmol/L POC Chloride 99 L (101-112) mmol/L Chloride 97 L (98-107) mmol/L Carbon Dioxide 25 (21-32) mmol/L POC Total CO2 25 (24-31) mmol/L Anion Gap 10 (3-11) POC Anion Gap 13.0 L (16-25) mmol/L POC BUN 72 H (7-18) mg/dl BUN 78 H (6-23) mg/dl Creatinine 2.12 H (0.6-1.2) mg/dl POC Creatinine 2.2 H (0.6-1.3) mg/dl Est Cr Clr Drug Dosing 22.3 ml/min Est GFR ( Amer) 24.7 ml/min Est GFR (Non-Af Amer) 21.3 ml/min BUN/Creatinine Ratio 36.8 H (10-20) Glucose 258 H (70-99(Fasting)) mg/dl POC Glucose (other) 253 H (70-99) mg/dl Lactate 2.0 (0.4-2.0) mmol/L Calcium 10.6 H (8.6-10.3) mg/dl POC Ioniz Calcium Chen 1.36 H (1.12-1.32) mmol/l Magnesium 2.6 H (1.7-2.4) mg/dl Iron 61 (35-150) mcg/dl TIBC 270 (250-450) mcg/dl Unsaturated IBC 209 (155-355) mcg/dl Transferrin % Sat 23 (15-50) % Ferritin 293.5 (8-388) ng/ml Total Bilirubin 0.5 (0.2-1.0) mg/dl AST 25 (13-39) U/L ALT 27 (7-52) U/L Alkaline Phosphatase 93 (34-104) U/L Total Creatine Kinase 52 (26-192) U/L Troponin I High Sens 8.2 (0-14) pg/ml B-Natriuretic Peptide 211 H (0-100) pg/ml Total Protein 6.9 (6.0-8.3) gm/dl Albumin 3.6 (3.4-5.0) gm/dl Globulin 3.3 (2.5-4.0) gm/dl Albumin/Globulin Ratio 1.1 (0.9-2) Procalcitonin 1.50 H (0-0.5) ng/ml Imaging Data Attestation: I personally reviewed and interpreted this imaging study as follows: My Impression: Chest x-ray: Cardiomegaly with cephalization Radiologist's Impression: Chest X-Ray 05/25/24 13:00 SINGLE VIEW CHEST CLINICAL HISTORY: Sepsis FINDINGS: An AP, portable, upright chest radiograph is compared to study dated 06/17/2021. The heart is enlarged. There is prominence of the pulmonary vasculature. Scarring/atelectasis is seen at the lung bases. No airspace consolidation or large pleural effusion is identified. No pneumothorax is seen. The skeletal structures are osteopenic. There is chronic deformity of the left proximal humerus. A punctate radiodense/metallic foreign body projects over the right apex. IMPRESSION: 1. Cardiomegaly with prominence of the pulmonary vasculature. Correlate clinically for evidence of fluid overload/mild congestive change. 2. No airspace consolidation or large pleural effusion is identified. ACT 112: Negative or not required by law. Electronically signed by: Eber Duran M.D. 05/25/2024 2:[address] 05/25/24 13:00 CT SCAN OF THE BRAIN WITHOUT IV CONTRAST CLINICAL HISTORY: Generalized weakness. COMPARISON STUDY: No priors. TECHNIQUE: Unenhanced axial CT scan of the brain is performed from the vertex to the skull base. A dose lowering technique was utilized adhering to the principles of ALARA. FINDINGS: Brain parenchyma: There is age-related involutional change noting moderate subcortical and periventricular microangiopathic disease. There is no hemorrhage, mass effect, or evidence of acute territorial ischemia by CT criteria. Cloud-white matter differentiation is preserved. No extra-axial fluid collection is seen. Ventricles, sulci, cisterns: Prominent secondary to involutional change. Intracranial vasculature: There is atherosclerotic calcification of the cavernous carotid and vertebral arteries. Calvarium: Unremarkable. Sinuses and mastoids: A 1.8 cm retention cyst is seen in the left maxillary antrum. The paranasal sinuses are otherwise clear. There are trace mastoid effusions. Orbits: The bony orbits are grossly intact. There are bilateral ocular lens implants. IMPRESSION: There is no hemorrhage, mass effect, or evidence of acute territorial ischemia by CT criteria. ACT 112: Negative or not required by law. Electronically signed by: Eber Duran M.D. 05/25/2024 3:12 PM Abdomen/Pelvis CT 05/25/24 14:31 CT SCAN OF THE ABDOMEN AND PELVIS WITHOUT IV CONTRAST CLINICAL HISTORY: Generalized abdominal pain. Dysuria. Renal insufficiency COMPARISON STUDY: Abdominal ultrasound dated 06/27/2020. TECHNIQUE: CT scan of the abdomen and pelvis is performed from the lung bases to the proximal femora. Images are reviewed in the axial, sagittal, and coronal planes. IV contrast was not administered for this examination due to poor renal function. Note that the examination is suboptimal without oral and IV contrast. A dose lowering technique was utilized adhering to the principles of ALARA. CT DOSE: 1950.21 mGy.cm FINDINGS: Lung bases: The heart is normal in size and without pericardial effusion. The coronary arteries are densely calcified. The lung bases are clear noting bibasilar scarring/atelectasis. Dermal thickening and presumed postsurgical change is noted in the left breast. Liver: The unenhanced liver is enlarged, measuring 18.3 cm in length. Attenuation is diffusely diminished indicating steatosis. Fatty sparing is seen adjacent to the gallbladder fossa. There is no intrahepatic biliary ductal dilatation. Gallbladder: Unremarkable. Spleen: Normal in size and attenuation. Pancreas: The unenhanced pancreas is atrophic and grossly unremarkable. Adrenal glands: Unremarkable. Kidneys: The unenhanced kidneys demonstrate cortical atrophy and are without hydronephrosis. No renal calculi are identified and no ureteral stone is seen. A 12 mm complex/hyperdense left renal cyst is seen on image #110. There is mild urothelial thickening in the left renal pelvis with surrounding infiltration seen on axial image #124. Abdominal vasculature: The abdominal aorta is normal in course and caliber noting advanced atherosclerotic calcification. Bowel: There is no bowel obstruction. Mild fecal retention is seen throughout the colon. The appendix is not identified and reported surgically absent. Peritoneum: There is no intraperitoneal free air or abdominal ascites. There is a fat-containing umbilical hernia. Lymphadenopathy: None. Pelvic viscera: The bladder, uterus, and adnexa are normal as visualized. Skeletal structures: The skeletal structures are osteopenic. There is moderate lumbosacral spondylosis. No lytic or blastic lesions are seen. IMPRESSION: 1. There is urothelial thickening in the left renal pelvis with mild surrounding infiltration. Correlate with clinical findings and urinalysis. If warranted this could be reassessed with a follow-up CT urogram in 3-4 months time. 2. Hepatomegaly and hepatic steatosis. 3. Postsurgical change is suggested in the left breast with overlying dermal thickening. Correlate clinically. 4. Additional findings as above. ACT 112: Negative or not required by law. Electronically signed by: Eber Duran M.D. 05/25/2024 3:26 PM ECG Data Attestation: I personally reviewed and interpreted this ECG as follows: Rate (beats per minute): 75 Rhythm: + normal sinus ECG Intervals/blocks: + Normal QRS, + Normal KS and + Normal QT-c ECG ST segments: + Normal ST segments MDM Narrative 1259: The patient was evaluated in room C6. A complete history and physical exam was performed Cardiac monitoring: An order was placed for continuous cardiac monitoring. The monitor shows a rate of 70 with sinus rhythm interpreted by me 1545:Vital signs stable. Labs show white blood cell count 7.69 hemoglobin 10.7 coagulation studies within normal limits. VBG 7.34 pCO2 48. Creatinine 2.12. Baseline creatinine 1.3-1.4. Urinalysis is still pending. COVID and RSV negative. CT of the head within normal limits. CT abdomen pelvis shows possible inflammation of the bladder. Patient will be empirically treated with Cipro [address] [facility] & Plan Acute kidney injury superimposed on CKD, Acute UTI Discharge Plan Visit Data Chief Complaint: Referred by Doctor Stated Complaint: FATIGUE, CONSTIPATION, REG BY DOC ED Provider: Jonas Dougherty Discharge Problem: Acute kidney injury superimposed on CKD, Acute UTI Patient Disposition: Admitted As Inpatient Discharge Instructions Interventions: ED Discharge Assessment Last Done: 05/25/24 18:38
[2024-05-25] MEDS: CIPROFLOXACIN / D5W 400 MG/200 ML BAG IV SCH (21:48)
[2024-05-25] MEDS: ASPIRIN 81 MG ECTAB PO SCH (21:51)
[2024-05-25] MEDS: DOCUSATE SODIUM 100 MG CAP PO SCH (21:52)
[2024-05-25] MEDS: GABAPENTIN 300 MG CAP PO SCH (21:52)
[2024-05-25] MEDS: LANTUS PER UNIT CHARGE SQ SCH (22:00)
[2024-05-25] MEDS: INSULIN ASPART PER UNIT CHARGE SC SCH (22:01)
[2024-05-25] MEDS: FAMOTIDINE 10 MG TABLET PO SCH (23:47)
[2024-05-25] MEDS: HEPARIN SOD 5,000 UNIT/0.5 ML VIAL SQ SCH (23:47)
[2024-05-26] MEDS: LEVOTHYROXINE SODIUM 50 MCG TABLET PO SCH (06:00)
--- NOTE | 2024-05-26 07:49 | Hospitalist Progress Note ---
Date of Service May 26, 2024 Assessment & Plan (1) Acute kidney injury superimposed on CKD: Plan: metabolic encephalopathy, concern for uti on iv cipro on admission 2.12 today (baseline appears to be near 1.4)--> 1.75 secondary to poor oral intake along with continuing home furosemide and lisinopril No signs of obstruction on CT of the abdomen pelvis, however some ureteral thickening - high suspicion for UTI Hold lisinopril, dapagliflozin (2) Chronic heart failure with preserved ejection fraction (HFpEF): Plan: stable Appears dehydrated on exam Hold home Lasix for now and will give light LR x 1 bag overnight Continue home amlodipine and metoprolol Hold lisinopril with MISSY (3) Diabetes mellitus due to underlying condition with diabetic chronic kidney disease: Plan: Monitor BSG ACHS, goal is [id number] Hold metformin, Jardiance, and Farxiga for now Normally takes 40 units p.m. degludec, will start with 10 units twice daily of glargine due to her MISSY and poor oral intake Start CF 50 and CR 15 ACHS for now (4) Constipation: Plan: Patient denies bowel movement for the past 7 days Patient confirms still passing gas, no signs of obstruction on CT abdomen pelvis today miralax, consider suppository Plan Bilateral SCDs for DVT prophylaxis Admission and Anticipated Discharge Date Admission Date: May 25, 2024 Subjective pt feels improved but still weakened and slightly confused no dysuria Physical Exam Physical Exam: awake and oriented x2 cardiac is regular lungs are clear ext with trace edema Results & Data Results & Data Vital Signs (Past 12 Hours) Vital Signs Temp Pulse Pulse Pulse Resp BP Pulse Ox 05/26/24 07:02 98.2 F 77 16 155/77 H 96 05/26/24 03:47 98.2 F 72 18 136/64 94 05/25/24 23:11 98.2 F 77 28 H 132/70 94 05/25/24 22:58 75 05/25/24 22:05 74 19 133/56 L 92 O2 Del Method 05/26/24 07:02 Room Air 05/26/24 03:47 Room Air 05/25/24 23:11 Room Air 05/25/24 22:58 05/25/24 22:05 Room Air Laboratory Results review cbc review chemistry PG Care Time/CCT Total # of Minutes Spent Total Time Spent with Patient: Total time spent is greater than 50% in coordination of care (as documented) at patient's floor/unit and/or counseling patient: Coding Level of Care Code 46691 SUB INP/OBS CARE 2/35MIN Diagnoses Acute kidney injury superimposed on CKD N17.9; N18.9 Chronic heart failure with preserved ejection fraction (HFpEF) I50.32 Diabetes mellitus due to underlying condition with diabetic chronic kidney disease E08.22 Constipation K59.00
[2024-05-26 07:52] LABS: Hematocrit (blood only) 32.3 % (37.0-47.0); Hemoglobin 10.4 g/dl (12.0-16.0); Mean Corpuscular Hemoglobin 30.6 pg (25.0-34.0); Mean Corpuscular Hgb Conc 32.2 g/dL (32.0-36.0); Mean Platelet Volume 10.3 fL (9.4-12.4); Nucleated RBC # (auto) 0.03 K/uL (0.00-0.12); Nucleated RBC % (auto) 0.4 %; Platelet Count 207 K/uL (130-400); RDW Coefficient of Variation 14.6 % (11.5-14.5); RDW Standard Deviation 50.4 fL (36.4-46.3); White Blood Count 8.56 K/ul (4.8-10.8)
[2024-05-26 08:13] LABS: Basophils # (auto) 0.06 K/uL (0.00-0.20); Basophils % (auto) 0.7 %; Eosinophils # (auto) 0.69 K/uL (0.00-0.50); Eosinophils % (auto) 8.1 %; Lymphocytes # (auto) 2.56 K/uL (1.20-3.40); Lymphocytes % (auto) 29.9 %; Monocytes # (auto) 0.57 K/uL (0.11-0.59); Monocytes % (auto) 6.7 %; Neutrophils # (auto) 4.08 K/uL (1.40-6.50); Neutrophils % (auto) 47.6 %
[2024-05-26 08:30] LABS: Calcium 9.7 mg/dl (8.6-10.3); Creatinine Clr Calc Pharmacy 26.8 ml/min; Est GFR (African American) 31.1 ml/min; Est GFR (Non-African American) 26.8 ml/min; Magnesium 2.3 mg/dl (1.7-2.4); Potassium 4.1 mmol/L (3.5-5.1)
[2024-05-26] MEDS: METOPROLOL SUCC 50MG EXT REL TAB PO SCH (09:06)
[2024-05-26] MEDS: amLODIPine BESYLATE 5 MG TAB PO SCH (09:06)
[2024-05-26] MEDS: allopurinoL 100 MG TAB PO SCH (09:06)
[2024-05-26] MEDS: PANTOprazole 40 MG TAB PO SCH (09:07)
[2024-05-26] MEDS: POLYETHYLENE (MIRALAX) 17 GM PACK PO SCH (09:10)
[2024-05-26] MEDS: ANASTROZOLE 1 MG TAB PO SCH (12:03)
[2024-05-26 15:20] LABS: A calco-baum cmplx NotReported Not Detected (NotDetected); Bact fragilis Not Reported Not Detected (NotDetected); Blood Culture Id Panel See PCR Comment (NotDetected); C auris Not Reported Not Detected (NotDetected); Calbicans Not Reported Not Detected (NotDetected); Candida glabrata Not Reported Not Detected (NotDetected); Candida krusei Not Reported Not Detected (NotDetected); Cneoformans/gatti Not Reported Not Detected (NotDetected); Cparapsilosis Not Reported Not Detected (NotDetected); E cloacae compx Not Reported Not Detected (NotDetected); Efaecalis Not Reported Not Detected (NotDetected); Efaecium Not Reported Not Detected (NotDetected); Enterobacterales Not Reported Not Detected (NotDetected); Escherichia coli Not Reported Not Detected (NotDetected); H influenzae Not Reported Not Detected (NotDetected); K aerogenes Not Reported Not Detected (NotDetected); Koxytoca Not Reported Not Detected (NotDetected); Kpneumoniae grp Not Reported Not Detected (NotDetected); Lmonocyt Not Reported Not Detected (NotDetected); N meningitidis Not Reported Not Detected (NotDetected); P aeruginosa Not Reported Not Detected (NotDetected); Proteus spp Not Reported Not Detected (NotDetected); Salmonella spp Not Reported Not Detected (NotDetected); Staph lugdunensis Not Reported Not Detected (NotDetected); Staph spp. Not Reported DETECTED (NotDetected); Staphaureus Not Reported Not Detected (NotDetected); Staphepi Not Reported DETECTED (NotDetected); Staphylococcus spp. DETECTED (NotDetected); Stenmaltophilia Not Reported Not Detected (NotDetected); Strep agal(GrpB) Not Reported Not Detected (NotDetected); Strep pneum Not Reported Not Detected (NotDetected); Strep pyog (GrpA) Not Reported Not Detected (NotDetected); Strep spp Not Reported Not Detected (NotDetected); mecAC Resistant Gene DETECTED (NotDetected)
[2024-05-26 15:32] LABS: Staphylococcus epidermidis DETECTED (NotDetected)
--- NOTE | 2024-05-26 16:37 | Hospitalist Progress Note ---
Date of Service May 26, 2024 Assessment & Plan (1) MRSA bacteremia: Plan: metabolic encephalopathy, concern for uti initial cultures are pinpoint growth and urine but 1 blood culture did result positive for MRSA bacteremia. Subsequently patient's antibiotics were changed from Cipro to daptomycin due to her acute kidney injury. Patient will also have additional blood cultures obtained and echocardiogram will be obtained. Will check a CRP and again in the morning to determine if it is improving with antibiotic treatment If urine is negative for source of bacteremia is unclear at this time (2) Acute kidney injury superimposed on CKD: Plan: secondary to poor oral intake along with continuing home furosemide and lisinopril No signs of obstruction on CT of the abdomen pelvis, however some ureteral thickening - high suspicion for UTI Hold lisinopril, dapagliflozin (3) Chronic heart failure with preserved ejection fraction (HFpEF): Plan: stable Appears dehydrated on exam Hold home Lasix for now and will give light LR x 1 bag overnight Continue home amlodipine and metoprolol Hold lisinopril with MISSY (4) Diabetes mellitus due to underlying condition with diabetic chronic kidney disease: Plan: Monitor BSG ACHS, goal is [id number] Hold metformin, Jardiance, and Farxiga for now Normally takes 40 units p.m. degludec, will start with 10 units twice daily of glargine due to her MISSY and poor oral intake Start CF 50 and CR 15 ACHS for now (5) Constipation: Plan: Patient denies bowel movement for the past 7 days Patient confirms still passing gas, no signs of obstruction on CT abdomen pelvis today miralax, consider suppository Plan Bilateral SCDs for DVT prophylaxis Admission and Anticipated Discharge Date Admission Date: May 25, 2024 Results & Data Results & Data Vital Signs (Past 12 Hours) Vital Signs Temp Pulse Pulse Resp BP Pulse Ox O2 Del Method 05/26/24 15:38 98.2 F 78 18 113/70 95 Room Air 05/26/24 15:10 Room Air 05/26/24 11:26 97.5 F L 75 18 144/74 H 94 Room Air 05/26/24 08:00 73 05/26/24 07:02 98.2 F 77 16 155/77 H 96 Room Air PG Care Time/CCT Total # of Minutes Spent Total Time Spent with Patient: Total time spent is greater than 50% in coordination of care (as documented) at patient's floor/unit and/or counseling patient: Coding Level of Care Code None Diagnoses MRSA bacteremia R78.81; B95.62 Acute kidney injury superimposed on CKD N17.9; N18.9 Chronic heart failure with preserved ejection fraction (HFpEF) I50.32 Diabetes mellitus due to underlying condition with diabetic chronic kidney disease E08.22 Constipation K59.00
[2024-05-26] MEDS: POLYETHYLENE (MIRALAX) 17 GM PACK PO ONE (17:40)
[2024-05-26] MEDS: DAPTOmycin 400 MG in SYRINGE 0 ML IV SCH (18:35)
[2024-05-27 07:20] VITALS: RESP 18
--- NOTE | 2024-05-27 08:57 | XCELERA ---
[id number] \\[id number]
[2024-05-27 09:31] LABS: Hematocrit (blood only) 32.6 % (37.0-47.0); Hemoglobin 10.4 g/dl (12.0-16.0); Mean Corpuscular Hemoglobin 29.8 pg (25.0-34.0); Mean Corpuscular Hgb Conc 31.9 g/dL (32.0-36.0); Mean Corpuscular Volume 93.4 fL (80.0-100.0); Nucleated RBC # (auto) 0.02 K/uL (0.00-0.12); Nucleated RBC % (auto) 0.2 %; Platelet Count 245 K/uL (130-400); RDW Coefficient of Variation 14.6 % (11.5-14.5); RDW Standard Deviation 49.3 fL (36.4-46.3); Red Blood Count 3.49 M/uL (4.20-5.40); White Blood Count 10.16 K/ul (4.8-10.8)
[2024-05-27 09:53] LABS: BUN Creatinine Ratio 41.8 (10-20); C Reactive Protein 4.36 mg/dl (0-0.5); Calcium 9.6 mg/dl (8.6-10.3); Creatinine Clr Calc Pharmacy 35.3 ml/min; Est GFR (Non-African American) 37.1 ml/min; Magnesium 2.2 mg/dl (1.7-2.4); Potassium 4.5 mmol/L (3.5-5.1)
[2024-05-27 10:10] LABS: ALC (manual) 3.45 K/uL (1.2-3.4); ANC (manual) 5.38 K/uL (1.4-6.5); Basophils % (manual) 1 %; Eosinophils # (manual) 0.61 K/uL (0-0.50); Eosinophils % (manual) 6 %; Lymphocytes # (manual) 3.45 K/uL (1.2-3.4); Lymphocytes % (manual) 34 %; Metamyelocytes # (manual) 0.61 K/uL (0-0); Metamyelocytes % (manual) 6 %; Neutrophils # (manual) 5.38 K/uL (1.40-6.50); Neutrophils % (manual) 53 %
[2024-05-27 15:15] VITALS: BP 124/71; TEMP 98.6; O2SAT 97
[2024-05-27 16:55] VITALS: PULSE 72
--- NOTE | 2024-05-30 21:32 | Discharge Summary ---
Discharge Summary Date of Service May 27, 2024 Principal Dx & Hospital Course #1 = Principal Diagnosis (1) MRSA bacteremia: metabolic encephalopathy, concern for uti initial cultures are pinpoint growth and urine but 1 blood culture did result positive for MRSA bacteremia. Later confirmed to be not MRSA. Coag neg staph. likely a contamination. You were treated with cipro and then dapto and will complete 4 additonal days of augmentin. (2) Acute kidney injury superimposed on CKD: secondary to poor oral intake along with continuing home furosemide and lisinopril No signs of obstruction on CT of the abdomen pelvis, however some ureteral thickening - high suspicion for UTI Held lisinopril, dapagliflozin will hold lisinopril at discharge. (3) Chronic heart failure with preserved ejection fraction (HFpEF): stable Appears dehydrated on exam Hold home Lasix for now and will give light LR x 1 bag overnight Continue home amlodipine and metoprolol Hold lisinopril with MISSY (4) Diabetes mellitus due to underlying condition with diabetic chronic kidney disease: Monitor BSG ACHS, goal is [id number] (5) Constipation: Patient denies bowel movement for the past 7 days Patient confirms still passing gas, no signs of obstruction on CT abdomen pelvis today miralax, consider suppository Admission HPI Per Admitting Provider Farida is a 79 y/o F with a PMH of hyperlipidemia, type II DM, diabetic neuropathy, CKD, CAD, hypothyroidism, GERD, gout, lumbar spondylosis, and vitamin D deficiency who presented to [facility] ED on 05/25/2024 with multiple complaints including generalized weakness, poor p.o. intake, abdominal pain, and back pain. Patient was reportedly recently treated with Macrobid for possible UTI outpatient. She remained stable in the ED. Labs were significant for creatinine of 2.1 baseline is near 1.4), BUN of 78, calcium of 10.6, mag of 2.6, Pro-Krzysztof 1.50. Chest x-ray was read as cardiomegaly with prominence of pulmonary vascular. Correlate clinically for evidence of fluid overload/mild congestive change. No airspace consolidation or large pleural effusion is identified. CT of the head and brain without contrast was read as negative for acute findings. CT abdomen pelvis without contrast was read as urothelial thickening in the left renal pelvis with mild surrounding infiltration. Correlate with clinical findings and urinalysis. If warranted this could be reassessed with a follow-up CT urogram in 3 to 4 months time. Hepatomegaly and hepatic steatosis. Postsurgical changes suggested in the left breast with overlying dermal thickening. Correlate clinically. Additional findings as above. Prior to admission the patient was ordered 500 mg p.o. ciprofloxacin. Patient was lying in bed in no acute distress at time of exam with her daughter bedside, history is obtained from both. Over the past 5 to 6 days the patient has been experiencing progressive generalized weakness, suprapubic abdominal pain, poor appetite, and chills. Complete a 5-day course of Macrobid yesterday (05/24/2024), for possible UTI. Patient confirms that her symptoms have not improved since completing his course of Macrobid. No recent fevers, chest pain, shortness of breath, orthopnea, cough, nausea/vomiting, lower extremity swelling, or recent trauma. When asked, she does feel as though she is still experiencing dysuria and increased urinary frequency and states that she has been constipated over the past 4 days. Denies recent melena, or bright bloody bowel movements. Still passing gas and has been taking stool softener over the past 3 days. We discussed CODE STATUS, she wishes to be a DNR DNI and for daughter to make medical decisions for her if she cannot make them herself. Please refer to Dr. Veliz's attestation for any changes to the treatment plan Discharge Exam awake and oriented x2 cardiac is regular lungs are clear ext with trace edema Discharge Plan Discharge Items Patient Disposition: Home - Home Health Services Reason For Visit: GENERALIZED WEAKNESS, MISSY, POOR ORAL INTAKE Discharge Diagnosis: generalized weakness Activity: Resume your previous activity Non-emergency contact: Primary Care Provider Call non-emergency contact if: you have any medication questions Follow-up/Referrals: Bashir Garcia MD [Primary Care Provider] - 06/09/24 11:00 am (APPT. W/ JESSICA VENEGAS PA-C) Diet: Carb Consistent or DM2, Heart Healthy and Low Sodium (2gm) Diet Comment: minced and moist Addtl Attending Provider Instructions: You were seen for weakness which appears to have stemmed from acute kidney injury from dehydration and possibly urinary tract infection Thankfullky your blood cultures grew a bacterial that normally is on your skin, so we consider this a contaminated result and not a true infection. You will start Augmentin 875/125 twice a day for 4 days. First dose will be tonight. we will also switch your lasix to every other day. Pending Studies at Discharge: No Stand-Alone Forms: My [facility], Smoking Cessation Medications and DC Order Prescriptions: New amoxicillin-pot clavulanate 875-125 mg tablet 1 tab PO BID Qty: 8 0RF Continued famotidine 20 mg tablet 20 mg PO QPM Qty: 100 0RF omeprazole 20 mg capsule,delayed release(DR/EC) 20 mg PO QAM Qty: 100 5RF amlodipine 5 mg tablet 5 mg PO QAM Qty: 100 3RF (DME) pen needle, diabetic [BD Ultra-Fine Shante Pen Needle] 32 gauge x 5/32" needle See Dose Instructions .ROUTE .MEDSUPPLY Qty: 400 3RF Rx Instructions: use to inject four times day metoprolol succinate 50 mg tablet extended release 24 hr 50 mg PO QAM Qty: 100 3RF gabapentin 400 mg capsule 400 mg PO TID Qty: 270 3RF insulin degludec [Tresiba FlexTouch U-100] 100 unit/mL (3 mL) insulin pen 40 unit subcut QPM Qty: 45 2RF diclofenac sodium 75 mg tablet,delayed release (DR/EC) 75 mg PO BID Qty: 60 0RF Rx Instructions: TAKE 1 TABLET BY MOUTH TWICE DAILY ferrous sulfate [Feosol] 325 mg (65 mg iron) tablet 325 mg PO Q OTHER DAY (DME) FreeStyle Lexx 2 Sensor Kit See Rx Instructions .Route Rx Instructions: As directed (DME) blood-glucose meter [OneTouch Verio Flex meter] [facility] See Rx Instructions .Route Qty: 1 0RF Rx Instructions: use to test 4 x daily (DME) OneTouch Verio test strips Strip See Rx Instructions .ROUTE .MEDSUPPLY Qty: 400 3RF Rx Instructions: test 4 x daily anastrozole 1 mg tablet 1 mg PO QAM calcium carbonate [Calcium 600] 600 mg calcium (1,500 mg) tablet 600 mg PO QAM cholecalciferol (vitamin D3) 1,000 unit capsule 1,000 units PO QAM Vision Formula(J-I-A-Zn-Se-Cu) 1,000 unit-60 mg-30 unit tablet 1 tab PO QAM insulin aspart U-100 [Novolog FlexPen U-100 Insulin] 100 unit/mL (3 mL) insulin pen 18 unit subcut TIDM Rx Instructions: more if blood sugar is elevated aspirin [Adult Low Dose Aspirin] 81 mg tablet,delayed release (DR/EC) 81 mg PO HS vitamin A 2,400 mcg capsule 2,400 mcg PO QAM levothyroxine 50 mcg tablet 50 mcg PO DAILYBB metformin 500 mg tablet extended release 24 hr 250 mg PO QAM dapagliflozin propanediol [Farxiga] 5 mg tablet 5 mg PO QAM cyanocobalamin (vitamin B-12) [Vitamin B-12] 2,500 mcg tablet, sublingual 2,500 mcg sublingual QAM allopurinol 100 mg tablet 200 mg PO QAM Jardiance 10 mg tablet 10 mg PO QAM biotin 5,000 mcg tablet, sublingual 5,000 mcg sublingual QAM Changed furosemide 40 mg tablet 80 mg PO Q2D Qty: 100 3RF Held lisinopril 20 mg tablet 20 mg PO QAM Qty: 100 5RF Hold Instructions: Resume on 06/10/24. until you are seen by your primary care doctor Discharge Orders: Discharge Order (Routine); Ordered 05/27/24 Ordered By: Jose Manuel Pettit Admission Data Admit Date/Time: 05/25/24 16:00 Attending Provider: Jose Manuel Pettit Admit Provider: Mark Veliz Primary Care Provider: Bashir Garcia Other Providers: Mark Veliz; [facility] Other Interventions: Discharge Summary Assessment (RN) Last Done: 05/27/24 16:52 Hospital Stay Data Consultations 05/25/24 15:42 ED Decision to Admit Stat Diagnostic Imagining Performed 05/25/24 13:00 CT head/brain wo con Stat 05/25/24 14:31 CT abd pelvis wo con Stat Pending Results Patient Have Any Pending Studies at Discharge: No Discharge Instructions Given to Patient (Per Discharging Provider) You were seen for weakness which appears to have stemmed from acute kidney injury from dehydration and possibly urinary tract infection Thankfullky your blood cultures grew a bacterial that normally is on your skin, so we consider this a contaminated result and not a true infection. You will start Augmentin 875/125 twice a day for 4 days. First dose will be tonight. we will also switch your lasix to every other day. Total Time Total Time Spent Total Time Spent (In Minutes): 32 Coding Level of Care Code 43868 INP/OBS DISCH >30 MIN Diagnoses MRSA bacteremia R78.81; B95.62 Acute kidney injury superimposed on CKD N17.9; N18.9 Chronic heart failure with preserved ejection fraction (HFpEF) I50.32 Diabetes mellitus due to underlying condition with diabetic chronic kidney disease E08.22 Constipation K59.00
== END 2024-05-27 17:32 | disposition home health service (06) | DRG 682 ==
LOC: ED 12:28 → SUATTDRO 16:00 → INTOOBSV 16:00 → EDINP 16:00 → 2N 18:38

== ENCOUNTER 2025-02-04 08:37 | Observation (INO) ==
--- OUTSIDE RECORDS SUMMARY | 2025-02-04 08:40 | External Medical Summary | Continuity of Care Document ---
Author Name Unknown Organization [facility] [address] [phone] Care Team Providers Care Senior Communications Engineer Name Role Phone Bashir Garcia Primary Care Physician [phone] Encounter [facility] [id number] Date(s): 01/17/25 - 01/17/25 [facility] [address] [place], [place] [id number] Encounter Diagnosis Encounter for follow-up examination after completed treatment for cancer (Discharge Diagnosis) - 01/17/25 History of melanoma(Discharge Diagnosis) - 01/17/25 Actinic keratoses(Discharge Diagnosis) - 01/17/25 Inflamed seborrheic keratosis(Discharge Diagnosis) - 01/17/25 Melanocytic nevus of skin(Discharge Diagnosis) - 01/17/25 Discharge Disposition: Home or Self Care Attending Physician: MD Thomason Sara B Referring Physician: MD Thomason Sara B Encounter Type: Clinic Allergies, Adverse Reactions, Alerts Substance Criticality Severity Reaction Reaction Severity Status cefdinir hives Active Zocor Leg cramps Active Lipitor Leg cramp Active traMADol Constipation Active Latex rash Active Vytorin Leg cramps Active Assessment and Plan Extracted from: Title:Dermatology Office Visit Note Author:Lucia urbano MD, Sara B Date:01/17/25 1. Encounter for follow-up examination after completed treatment for cancer Scars clear, pt aware of increased risks, call with any new lesions. 2. History of melanoma and mult NMSC. Warning signs of skin cancer were reviewed. Sun protection reviewed. Follow-up in 6 months, sooner for any changing or growing lesions or acute concerns. I also recommended monthly self skin exams 3. Actinic keratoses x1. Lesion treated with liquid nitrogen. Patient aware of possibility of infection, hypo or hyperpigmentation or scarring and did elect to proceed. They should inform me of any problems or recurrences post treatment. Care sheet given. 4. Inflamed seborrheic keratosis x1. Lesion treated with liquid nitrogen. Patient aware of possibility of infection, hypo or hyperpigmentation or scarring and did elect to proceed. They should inform me of any problems or recurrences post treatment. Care sheet given. 5. Melanocytic nevus of skin Chronic, within normal limits today 6. Sun damaged skin. Improved after 4 sessions PDT. Continue level 30 broadspectrum SPF sunscreen every 2 hours, hats and sunglasses. Medications amLODIPine 5 mg oral tablet Start: 01/16/23 2:54:00 PM EDT, 1 tab, PO, Daily Start Date: 01/16/23 Status: Ordered Repeat number: 1 anastrozole 1 mg oral tablet Start: 09/12/21 1:48:00 PM EST, 1 tab, PO, Daily Start Date: 09/12/21 Status: Ordered Repeat number: 1 aspirin 81 mg oral tablet Start: 06/17/12 9:32:00 AM EDT, 1 tab, PO, Daily, tab Start Date: 06/17/12 Status: Ordered Repeat number: 1 clindamycin 1% topical gel Start: 11/20/22 8:18:00 AM EST, 1 appl, topical, bid, Disp# 30 g, Refills: 2, To pimply areas on head BID PRN, Pharmacy: [id number] Start Date: 11/20/22 Status: Ordered Quantity: 30.0 Unit: g Repeat number: 3 famotidine 20 mg oral tablet Start: 01/16/23 2:54:00 PM EDT Start Date: 01/16/23 Status: Ordered Repeat number: 1 gabapentin 300 mg oral capsule Start: 06/17/12 9:31:00 AM EDT, 1 cap, PO, tid Start Date: 06/17/12 Status: Ordered Repeat number: 1 hydrocortisone 2.5% topical cream Start: 02/10/24 12:51:00 PM EDT, 1 appl, topical, Daily, Disp# 30 g, Refills: 1, TO rash on face and breast BID PRN, Pharmacy: [id number] Start Date: 02/10/24 Status: Ordered Quantity: 30.0 Unit: g Repeat number: 2 ketoconazole 2% topical cream Start: 06/30/24 1:17:00 PM EDT, 1 appl, topical, bid, Disp# 30 g, Refills: 2, To red areas under breast BID PRN, Pharmacy: [id number] Start Date: 06/30/24 Status: Ordered Quantity: 30.0 Unit: g Repeat number: 3 Lasix 20 mg oral tablet Start: 05/11/18 2:30:00 PM EDT, 1 tab, PO, Daily Start Date: 05/11/18 Status: Ordered Repeat number: 1 Levothroid 25 mcg (0.025 mg) oral tablet Start: 06/30/16 12:13:00 PM EDT, See Instructions, one tablet Thu-Thu and two tablets Thu and Thursday Start Date: 06/30/16 Status: Ordered Repeat number: 1 lisinopril 40 mg oral tablet Start: 06/17/12 9:34:00 AM EDT, 1 tab, PO, Daily Start Date: 06/17/12 Status: Ordered Repeat number: 1 metoprolol succinate 50 mg oral tablet, extended release Start: 06/17/12 9:30:00 AM EDT, 1 tab, PO, Daily Start Date: 06/17/12 Status: Ordered Repeat number: 1 NovoLOG Start: 05/11/18 11:50:00 AM EDT, 18 unit =, subQ, tid, before dinner Start Date: 05/11/18 Status: Ordered Repeat number: 1 omeprazole 20 mg oral delayed release tablet Start: 06/30/16 12:14:00 PM EDT, 1 tab, PO, qAM Start Date: 06/30/16 Status: Ordered Repeat number: 1 Refresh Dry Eye Therapy Start: 08/08/19 9:56:00 AM EST, 1 drop, both eyes, bid Start Date: 08/08/19 Status: Ordered Repeat number: 1 Tresiba FlexTouch 100 units/mL subcutaneous solution Start: 01/16/23 2:53:00 PM EDT, 35 unit =, subQ, Daily Start Date: 01/16/23 Status: Ordered Repeat number: 1 unlisted medication Start: 12/16/12 9:32:00 AM EDT, 1 tab, PO, Daily, Vision Formula Start Date: 12/16/12 Status: Ordered Repeat number: 1 vitamin A Start: 04/27/19 9:38:00 AM EDT, PO, Daily Start Date: 04/27/19 Status: Ordered Repeat number: 1 Vitamin D3 1000 intl units oral capsule Start: 12/15/13 9:23:00 AM EDT, 1 cap, PO, Daily Start Date: 12/15/13 Status: Ordered Repeat number: 1 Mental Status 01/17/25 Barriers to Learning one year None evide nt Mandatory Health Literacy Documentation Yes Health Literacy Communication Barriers N ever Primary Language Monegasque Problem List Condition Confirmation Course Effective Dates Status H ealth Status Informant Actinic keratosis Confirmed Active Arthritis Confirmed Active Xerosis cutis Confirmed Active Back pain Confirmed Active Basal Cell Carcinoma Of Cheek Confirmed Active Callus Confirmed Active Changing skin lesion Confirmed Active Cough Confirmed Active Diabetes mellitus Confirmed Active Diabetic neuropathy Confirmed Active Thyroid condition Confirmed Active Elevated cholesterol Confirmed Active Drug rash Confirmed Active Family history of skin cancer 1 Confirmed Active Foreign body in foot Confirmed Active History of melanoma Confirmed Active Encounter for follow-up examination after completed treatment for cancer Confirmed Active Heart disease Confirmed Active Hx of skin malignancy Confirmed Active HYPERTENSION Confirmed Active Inflamed seborrheic keratosis Confirmed Active Intertrigo Confirmed Active Knee pain, right Confirmed Active Melanoma Confirmed Active Breast CA Confirmed Active Melanocytic nevus of skin Confirmed Active Tinea unguium Confirmed Active Rheumatoid disease Confirmed Active Seborrheic keratoses Confirmed Active Senile hyperkeratosis Confirmed Active Pilar cyst Confirmed Active Complicated varicose veins Confirmed Active 1father had facial skin cancer. Diagnosis Diagnosis Type Effective Dates Health Status Clinical Service Informant Encounter for follow-up examination after completed treatment for cancer Discharge Diagnosis 01/17/25 History of melanoma Discharge Diagnosis 01/17/25 Melanocytic nevus of skin Discharge Diagnosis 01/17/25 Actinic keratoses Discharge Diagnosis 01/17/25 Inflamed seborrheic keratosis Discharge Diagnosis 01/17/25 Procedures Procedure Date Related Diagnosis Body Site Status Mohs' chemosurgery 01/2025 Comple yonathan Lumpectomy of left breast 06/2021 Completed Biopsy 02/19/21 Completed Shave biopsy and cauterization of skin 07/12/20 Completed Carpal tunnel release 03/2020 Com pleted Mohs micrographic surgery 11/30/19 Completed Shave biopsy and cauterization of skin 04/27/19 Completed Punch biopsy 10/27/18 Completed Shave biopsy and cauterisation of skin 10/27/18 Completed Excision 1 06/2018 Completed Shave biopsy and cauterization of skin 05/03/18 Completed Shave biopsy and cauterisation of skin 04/15/18 Completed Electrodesiccation with curettage 09/29/17 Completed Shave biopsy 2 09/16/17 Completed Excision of cyst 04/15/16 Complete d Carpal tunnel 11/2014 Completed Stent 3 2005 Completed Appendectomy Completed 1melanoma excision right arm and lymph node right neck 2left lateral cheek 3heart stents Social History Social History Type Response Smoking Status Never smoked cigaret tamy Sex Female Sex Representation Female (finding) Dermatology Outpatient Note * MD Katelin, Malathi Sykes: PERFORM Event Display: Dermatology Outpt Note Authored Date: [id number] Chief Complaint skin check spot on right hand History of Present Illness The patient is a pleasant 79-year-old female. Here for skin check. Has 1 spot on right hand. 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 Please note, we also did [facility] and she wasin the best category for that as well. Also, basal cell, left neck, treated with Mohs in 2009; basal cell, left lateral cheek, treated with ED and C in the fall. BCC left cheek tx MOHS early 2019 [1] Scar right upper lip from Dr. Jose Antonio MCCANN 1 week ago. Had 4 episodes of PDT in the summer. Review of systems: 12 point review of systems conducted. Negative for CASH/ uncontrolled nausea or vomiting/ dizziness/ vision changes/ speech or swallowing problems/ new cough/ SOB/ diarrhea/ abdominal pain/ new or concerning moles/ unintended weight loss/ night sweats/ fevers/ chills/ malaise/ swollen lymph nodes. Patient is able to perform the activities of daily living without difficulty. Physical Exam Gen: Well appearing patient, no acute distress. Alert and oriented x3. Good mood. Skin examination completed of face, eyelids, scalp, hair, lips, ears, neck, chest, back, abdomen,upper and lower extremities bilaterally including hands, feet, fingers and toes, fingernails and toenails, pt declined buttocks and groin. Pt declined a deliverer outside. New scar right upper lip. No evidence recurrent skin cancer. No neck, supraclavicular, posterior occipital, axillary or inguinal lymphadenopathy. No hepatosplenomegaly. No lip or gential pigmented lesions. One pink scaly patches consistent with actinic keratosis right hand. One itchy inflamed SK elft lateral thigh. Sun damage, sayra on face and forearm. Scattered less than 6mm in diameter well circumscribed round brown macular nevi within normal limits under dermoscopy. Assessment/Plan 1. Encounter for follow-up examination after completed treatment for cancer Scars clear, pt aware of increased risks, call with any new lesions. 2. History of melanoma and mult NMSC. Warning signs of skin cancer were reviewed. Sun protection reviewed. Follow-up in 6 months, sooner for any changing or growing lesions or acute concerns. I also recommended monthly self skin exams 3. Actinic keratoses x1. Lesion treated with liquid nitrogen. Patient aware of possibility of infection, hypo orhyperpigmentation or scarring and did elect to proceed. They should inform me of any problems or recurrences post treatment. Care sheet given. 4. Inflamed seborrheic keratosis x1. Lesion treated with liquid nitrogen. Patient aware of possibility of infection, hypo orhyperpigmentation or scarring and did elect to proceed. They should inform me of any problems or recurrences post treatment. Care sheet given. 5. Melanocytic nevus of skin Chronic, within normal limits today 6. Sun damaged skin. Improved after 4 sessions PDT. Continue level 30 broadspectrum SPF sunscreen every 2 hours, hats and sunglasses. Problem List/Past Medical History Ongoing Actinic keratosis Arthritis Back pain Basal Cell Carcinoma Of Cheek Breast CA Callus Changing skin lesion Complicated varicose veins Cough Diabetes mellitus Diabetic neuropathy Drug rash Elevated cholesterol Encounter for follow-up examination after completed treatment for cancer Family history of skin cancer Foreign body in foot Heart disease History of melanoma Hx of skin malignancy HYPERTENSION Inflamed seborrheic keratosis Intertrigo Knee pain, right Melanocytic nevus of skin Melanoma Pilar cyst Rheumatoid disease Seborrheic keratoses Senile hyperkeratosis Thyroid condition Tinea unguium Xerosis cutis Procedure/Surgical History •Mohs' chemosurgery| Service Date: 01/2025•Lumpectomy of left breast| Service Date: 06/2021•Biopsy| Service Date: 02/19/2021•Shave biopsy and cauterization of skin| Service Date: 07/12/2020•Carpal tunnel release| Service Date: 03/2020•Mohs micrographic surgery| Service Date: 11/30/2019•Shave biopsy and cauterization of skin| Service Date: 04/27/2019•Shave biopsy and cauterisation of skin| Service Date: 10/27/2018•Punch biopsy| Service Date: 10/27/2018•Excision| Service Date:06/2018•Shave biopsy and cauterization of skin| Service Date: 05/03/2018•Shave biopsy and cauterisation of skin| Service Date: 04/15/2018•Electrodesiccation with curettage| Service Date: 017•Shave biopsy| Service Date: 09/16/2017•Excision of cyst| Service Date: 04/15/2016•Carpal tunnel| Service Date: 11/2014•Stent| Service Date: 2005•Appendectomy Medications amLODIPine(amLODIPine 5 mg oral tablet), 5 mg= 1 tab, PO, Daily anastrozole(anastrozole 1 mg oral tablet), 1 mg= 1 tab, PO, Daily aspirin(aspirin 81 mg oral tablet), 81 mg= 1 tab, PO, Daily cholecalciferol(Vitamin D3 1000 intl units oral capsule), 1000 Int_Unit= 1 cap, PO, Daily clindamycin topical(clindamycin 1% topical gel), 1 appl, topical, bid, 2 refills famotidine(famotidine 20 mg oral tablet) furosemide(Lasix 20 mg oral tablet), 20 mg= 1 tab, PO, Daily gabapentin(gabapentin 300 mg oral capsule), 300 mg= 1 cap, PO, tid hydrocortisone topical(hydrocortisone 2.5% topical cream), 1 appl, topical, Daily, 1 refills insulin aspart(NovoLOG), 18 unit, subQ, tid insulin degludec(Tresiba FlexTouch 100 units/mL subcutaneous solution), 35 unit, subQ, Daily ketoconazole topical(ketoconazole 2% topical cream), 1 appl, topical, bid, 2 refills levothyroxine(Levothroid 25 mcg (0.025 mg) oral tablet), See Instructions lisinopril(lisinopril 40 mg oral tablet), 40 mg= 1 tab, PO, Daily metoprolol(metoprolol succinate 50 mg oral tablet, extended release), 50 mg= 1 tab, PO, Daily ocular lubricant(Refresh Dry Eye Therapy), 1 drop, both eyes, bid omeprazole(omeprazole 20 mg oral delayed release tablet), 20 mg= 1 tab, PO, qAM unlisted medication, 1 tab, PO, Daily vitamin A, PO, Daily Allergies Latex rash Lipitor Leg cramp Vytorin Leg cramps Zocor Leg cramps cefdinir hives traMADol Constipation Social History Smoking Status Never smoked cigarettes Family History Cancer: Unknown. Diabetes: Unknown. Health Status Family Member(s) Electronic Signature on File Electronically Reviewed/Signed by: Malathi Thomason MD Author Signature Dt/Tm:01/17/2025 12:14 PM Department of Dermatology [facility] Patient Care team information Care Team Personnel Name: GIACOMO Hobbs Lynn Position: Physician Plant Utility Person Exempt - Vasc Surg Member Role: Lifetime Relationship Address: [address] [place] [address] Telecom: [phone] Name: MD Garcia Jeffrey W Position: Referring DIRECT Member Role: Primary Care Provider Address: [facility] [address] Telecom: [phone] Care Team Related Persons Name: ISA FINNEGAN Insurance Providers Guarantor name: POORNIMA JHONATAN FLOWER Health Plan Information #: 1 Payer: [employer] Member Number: [id number] Policy Number: NA Group Number: [id number] Payer Identifier: [id number] Health Plan Information #: 2 Payer: [employer] Member Number: [id number] Policy Number: NA Group Number: [id number] Payer Identifier: [id number]"
[2025-02-04] MEDS: NITROGLYCERIN 2% OINTMENT 30GM TUBE EXT STA (09:54)
[2025-02-04] MEDS: FUROSEMIDE 40 MG/4 ML VIAL IV ONE ×2 (09:55→17:47)
--- NOTE | 2025-02-04 09:59 | XRay Report ---
Clinical History: Shortness of breath Technique: A frontal view of the chest was obtained Comparison is made to the prior examination dated 05/25/2024 Findings: There is new alveolar consolidation in the right lower lobe, with multifocal interstitial prominence in the remainder of the lungs bilaterally. This is consistent with pneumonia. The heart is mildly enlarged. No pleural effusion or pneumothorax is seen. There is no definite pulmonary nodule. No fracture is noted. No foreign body is seen Impression: 1. Right worse than left pneumonia 2. Mild cardiomegaly ACT 112: Positive. There are findings on this exam that require communication between the performing entity and the patient following Patient Test Result Information Act ([place] ACT 112) guidelines. Electronically signed by Nate Armendariz 02-04-2025 09:58 AM
[2025-02-04 10:33] LABS: Albumin Globulin Ratio 1.2 (0.9-2); Albumin Level 3.6 gm/dl (3.4-5.0); BUN Creatinine Ratio 32.2 (10-20); Bilirubin,Total 0.8 mg/dl (0.2-1.0); Calcium 8.9 mg/dl (8.6-10.3); Creatinine Clr Calc Pharmacy 52.4 ml/min; Globulin 2.9 gm/dl (2.5-4.0); Magnesium 1.9 mg/dl (1.7-2.4); Potassium 4.5 mmol/L (3.5-5.1); Total Protein 6.5 gm/dl (6.0-8.3)
[2025-02-04 10:39] LABS: Troponin I High Sensitivity 12.7 pg/ml (0-14)
[2025-02-04 11:30] LABS: Basophils # (auto) 0.02 K/uL (0.00-0.20); Basophils % (auto) 0.2 %; Eosinophils # (auto) 0.06 K/uL (0.00-0.50); Eosinophils % (auto) 0.6 %; Hematocrit (blood only) 34.5 % (37.0-47.0); Hemoglobin 11.5 g/dl (12.0-16.0); Immature Granulocytes # (auto) 0.03 K/uL (0.01-0.20); Immature Granulocytes % (auto) 0.3 %; Lymphocytes # (auto) 1.23 K/uL (1.20-3.40); Lymphocytes % (auto) 12.8 %; Mean Corpuscular Hemoglobin 31.2 pg (25.0-34.0); Mean Corpuscular Hgb Conc 33.3 g/dL (32.0-36.0); Mean Corpuscular Volume 93.5 fL (80.0-100.0); Mean Platelet Volume 10.3 fL (9.4-12.4); Monocytes # (auto) 0.56 K/uL (0.11-0.59); Monocytes % (auto) 5.8 %; Neutrophils # (auto) 7.68 K/uL (1.40-6.50); Neutrophils % (auto) 80.3 %; Platelet Count 209 K/uL (130-400); RDW Coefficient of Variation 14.4 % (11.5-14.5); RDW Standard Deviation 49.1 fL (36.4-46.3); Red Blood Count 3.69 M/uL (4.20-5.40); White Blood Count 9.58 K/ul (4.8-10.8)
[2025-02-04 11:40] LABS: Partial Thromboplastin Ratio 1.2; Partial Thromboplastin Time 32 Seconds (21-31); Prothrombin Time 10.7 Seconds (9.0-12.0)
[2025-02-04] MEDS ORDERED: POLYETHYLENE (MIRALAX) 17 GM PACK PO PRN (12:49)
[2025-02-04] MEDS ORDERED: MELATONIN 3 MG TAB PO PRN (12:49)
--- NOTE | 2025-02-04 12:49 | History & Physical Report ---
Date of Service February 04, 2025 Assessment & Plan (1) Acute congestive heart failure: (2) Chronic heart failure with preserved ejection fraction (HFpEF): (3) Diabetes mellitus due to underlying condition with diabetic chronic kidney disease: (4) Type 2 diabetes mellitus, with long-term current use of insulin: (5) Diabetic peripheral neuropathy: (6) Hyperlipidemia: (7) Hypothyroid: (8) CAD (coronary artery disease): (9) Pneumonia: Plan Farida is a 79 y/o F with a PMH of hyperlipidemia, type II DM, diabetic neuropathy, CKD, CAD, hypothyroidism, GERD, gout, lumbar spondylosis, and vitamin D deficiency admitted with acute heart failure on chronic HF and Right sided LL Pneumonia. Endorses sx worsening in last couple of weeks, and very severe since last night. Baseline vitals stable, no new need of O2, admitted for observation. #Acute HF with chronic CHF with preserved EF exacerbation - Likely 2/2 Pneumonia vs ?HF progression - NYHA Class: III since yesterday. - Baseline BNP: 222---> 300 - Baseline TTE( may 2024): Preserved EF - Weight today: 93.7 *ED course: - Vitals:Stable - PE: BL rales, BL leg edema. - Labs: Troponin: Neg, BNP: 300 - ECG:SR with PVCs. - Imaging: CXR with BL mild pulm edema and consolidation on right. - S/P lasix 40 mg IV. *Plan: - Telemetry monitoring - Lasix 40 mg IV at 5 pm today. Will reassess in morning. - Continue home meds: hold oral lasix, continue amlodipine, metoprolol. - Supplemental O2 if needed. - 2 L fluid restriction. Low sodium diet (< 2 g/day). - Strict Ins/Outs. Daiky weight check, - TTE ordered: pending - Electrolytes: WNL. #Pneumonia: Endorses productive cough for couple of days. Consolidation in right LL likley CAP. Does not meet criteria for inpatient treatment of PNE. Will start Outpatient Pne regimen: Augmentin and Azithromycin. #Type II DM: - Last HBA1C: - Home Basal 20 unit+ regular. plan: Stop home regimen Basal lantus 7 units BID. Bolus: Aspart with CF: 40/ CR: 13. ACHS BS check. Dispo: Admit to Med/Surg tele Code status: DNR/DNI Probable DC tomorrow History of Present Illness Primary Care Provider: Bashir Garcia MD Farida is a 79 y/o F with a PMH of hyperlipidemia, type II DM, diabetic neuropathy, CKD, CAD, hypothyroidism, GERD, gout, lumbar spondylosis, and vitamin D deficiency who presented to [facility] ED on 02/05/2024 with complaints increased SOB for past couple of weeks and more severe last night when she had to wake up and sit on chair suddenly around 2 am last night. She felt better after lying on the chair. Endorses some CP while deep breathing in and out but not severe central radiating chest pain. She has h/o CAD, does not feel like it was heart attack. Waking up this morning, her legs were huge, had been noticing increased weight since quite some time and did not realize it could be fluids. Lying with head elevated is making her feel obviously better. Mentions some headaches but nothing unusual. No blurring of vision, no belly pain, no urine sx, had BM yesterday. Missed morning dose of meds as she came in here directly. After presenting to ED- Vitals stable, BP at goal, Sats maintaining at RA. She was given 40 mg of IV lasix and is feeling better when I saw her. Chest Xray reports some pneumonia on right side, however correlating with her sx and image makes me feel like there is fluids BL, of course more on right side. PMH: reviewed Drug and allergy reviewed: allergic to Cefdenir. Allergies Allergy/AdvReac Type Severity Reaction Status Date / Time cefdinir Allergy Intermediate Rash Verified 02/04/25 10:13 latex Allergy Intermediate Rash Verified 02/04/25 10:13 atorvastatin [From Lipitor] AdvReac Intermediate Joint Pain Verified 02/04/25 10:13 ezetimibe [From Vytorin] AdvReac Intermediate LEG PAIN Verified 02/04/25 10:13 simvastatin AdvReac Intermediate LEG Verified 02/04/25 10:13 PAIN/COULD NOT WALK tramadol AdvReac Intermediate constipatio Verified 02/04/25 10:13 n Home Medications Medication Instructions Recorded Confirmed Type cholecalciferol (vitamin D3) 25 1,000 units PO QAM 04/28/19 02/04/25 History mcg (1,000 unit) capsule vit A 1,000 unit-C 60 mg-E 30 1 tab PO QAM 04/28/19 02/04/25 History unit-zinc oxid-selenium AA-copper tablet (Vision Formula([id number]-Cu)) aspirin 81 mg tablet,delayed 81 mg PO HS 06/18/21 02/04/25 History release (Adult Low Dose Aspirin) anastrozole 1 mg tablet 1 mg PO QAM 09/06/21 02/04/25 History calcium carbonate (Calcium 600) 600 mg PO QAM 09/06/21 02/04/25 History OneTouch Verio Flex meter #1 ea 09/08/21 12/29/24 Rx (blood-glucose meter) OneTouch Verio test strips (blood #400 ea 09/08/21 12/29/24 Rx sugar diagnostic) omeprazole 20 mg capsule,delayed 20 mg PO QAM #100 caps 03/23/23 02/04/25 Rx release ferrous sulfate 325 mg (65 mg 325 mg PO Q OTHER DAY 01/12/24 02/04/25 History iron) tablet (Feosol) flash glucose sensor (FreeStyle 01/12/24 12/29/24 History Lexx 2 Sensor kit) biotin 5,000 mcg sublingual tablet 5,000 mcg sublingual QAM 05/25/24 02/04/25 History cyanocobalamin (vitamin B-12) 2,500 mcg sublingual QAM 05/25/24 02/04/25 History 2,500 mcg sublingual tablet (Vitamin B-12) vitamin A 2,400 mcg capsule 2,400 mcg PO QAM 05/25/24 02/04/25 History amlodipine 5 mg tablet 5 mg PO QAM #100 tabs 06/10/24 02/04/25 Rx BD Ultra-Fine Shante Pen Needle 32 #400 ea 06/27/24 12/29/24 Rx gauge x 5/32" (pen needle, diabetic) metoprolol succinate 50 mg 50 mg PO QAM #100 tabs 06/28/24 02/04/25 Rx tablet,extended release 24 hr furosemide 40 mg tablet 40 mg PO DAILY 07/11/24 02/04/25 History insulin degludec 100 unit/mL (3 40 unit (0.4 mL) subcut QPM #45 mL 07/11/24 02/04/25 Rx mL) subcutaneous pen (Tresiba FlexTouch U-100 insulin) levothyroxine 75 mcg tablet 75 mcg PO DAILY #30 tabs 08/05/24 02/04/25 Rx insulin aspart U-100 100 unit/mL 18 unit (0.18 mL) subcut TIDM #15 08/24/24 02/04/25 Rx (3 mL) subcutaneous pen (Novolog mL FlexPen U-100 Insulin aspart) allopurinol 100 mg tablet 200 mg PO QAM 02/04/25 02/04/25 History gabapentin 400 mg capsule 400 mg PO 6XD 02/04/25 02/04/25 History Past Med/Surg History Problem List (Updated 02/04/25 @ 14:58 by Richie Romero DO) Pneumonia Acute congestive heart failure Knee pain, right Proteinuria Arthralgia Acute UTI (Acute) Constipation Generalized weakness Chronic heart failure with preserved ejection fraction (HFpEF) Diabetes mellitus due to underlying condition with diabetic chronic kidney disease Type 2 diabetes mellitus, with long-term current use of insulin Current use of proton pump inhibitor Gout Diabetic peripheral neuropathy Hyperlipidemia Hypothyroid Vitamin D deficiency Degenerative arthritis of knee, bilateral Lumbar spondylosis Spondylolisthesis, lumbar region Intraductal carcinoma of breast Diabetes CAD (coronary artery disease) follows with Dr. Martins Osteoarthritis S/P lumpectomy, left breast (06/25/21) Left Breast Lumpectomy with Localization, Left Axillary Ball Lymph Node Biopsy Dr. Eldridge 06-25-21 Mucinous carcinoma of left breast Lumbar radicular pain Malignant neoplasm of central portion of left breast in female, estrogen receptor positive (Chronic 05/31/21) Lymphedema of arm (Chronic) Spinal stenosis of lumbar region Diastolic CHF Moderate mitral valve regurgitation Colon cancer screening Postnasal drip (Chronic) Cerumen impaction (Acute) Hearing loss Adult situational stress disorder Neuropathy Uncontrolled type 2 diabetes mellitus with diabetic neuropathy Diabetes mellitus type 2, insulin dependent Medical History MRSA bacteremia Acute kidney injury superimposed on CKD Spinal stenosis HX: breast cancer Hx of gout GERD (gastroesophageal reflux disease) DM type 2 (diabetes mellitus, type 2) History of skin cancer Hearing deficit Arthritis Osteopenia Urethral diverticulum Surgical History History of tooth extraction H/O heart artery stent History of colonoscopy History of left breast biopsy History of cataract surgery History of carpal tunnel surgery History of tonsillectomy Hx of appendectomy Family History Sister Ovarian cancer Breast cancer Mother Diabetes Hypertension Daughter Diabetes Hypertension Dyslipidemia Father Hypertension Skin cancer Diabetes Natural with unknown cause Sister Natural with unknown cause Dementia Sister Diabetes Brain tumor Coronary heart disease Daughter No problems noted. 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 Beliefs That Will Affect Care: None marital status: Current Living Situation: Family Current Living Situation Comment: WITH DAUGHTER current occupational status: retired current occupation: Worked in [employer] How many Children do You have: 3 Feels Safe at Home: Yes Childhood Exposure to Second-Hand Smoke: No Diet: diabetic during the past year weight has: remained stable Dental Care, Regularly: Yes Physical Activity Frequency: 3-4 Times per Week Seatbelt Use: always Sunscreen Use: Yes Assistive Devices: Cane and Walker Review of Systems Review of Systems: As per HPI Physical Exam Physical Exam: Constitutional: Well appearing, No acute distress, Pale looking. no facial swelling. Lying with head elevated, comfortable looking. No O2. HEENT: Atraumatic, Normocephalic, No conjunctival injection CVS: S1 S2, Systolic murmur +, Regular Rhythm, BL LE pitting edema Respiratory: BL equal air decreased with NVBS. Basal rales BL R>L . No increased work of breathing GI: Soft, Nondistended, Nontender, Normal Bowel sounds + MSK: No gross deformities noted Skin: Warm, Dry, Lesions resembling Seborrheic keratosis in back. Neuro: Alert, Oriented to TPP, No Focal deficit Psych: Mood and Affect congruent, Cooperative on exam Results & Data Results & Data Vital Signs (Past 12 Hours) Vital Signs Temp Pulse Pulse Resp BP BP Pulse Ox 02/04/25 12:19 78 20 149/80 H 94 02/04/25 11:27 82 20 158/97 H 93 02/04/25 10:30 80 17 176/88 H 93 02/04/25 10:20 94 02/04/25 10:00 79 23 168/83 H 94 02/04/25 09:30 81 20 162/78 H 95 02/04/25 08:58 91 H 02/04/25 08:42 36.9 C 92 H 24 200/71 H 93 O2 Del Method 02/04/25 12:19 Room Air 02/04/25 11:27 Room Air 02/04/25 10:30 Room Air 02/04/25 10:20 Room Air 02/04/25 10:00 Room Air 02/04/25 09:30 02/04/25 08:58 02/04/25 08:42 Room Air Supervising Physician Co-Signing Physician Notes ATTESTATION I also saw the patient and confirmed valencia portions of the history and exam. I agree with the impression and plan in the resident documentation, and as summarized below. She has not felt well for about three days - fatigue and productive cough which became worse last night with some orthopnea. She has also noted increased LE edema. Feeling a little better in terms of breathing after Lasix in the ED. Notes a low grade headache but thinks it is because she has not eaten. EXAM VS reviewed Alert and oriented. NAD Talks in full and complete sentences without pause. CV RRR Lungs decreased right base. LE 1+ edema DATA Labs CBC and BMP as noted Mild BNP elevation (302) Imaging CXR suggests right sided consolidation IMPRESSION & PLAN HFpEF, Acute on chronic Pneumonia Clinical history, exam, adn imaging consistent with pneumonia and acute on chronic diastolic heart failure Improved with Lasix 40 gm IV x 1 in the ED Additional 20 mg IV this afternoon, then likely return to home dose Lasix 40 mg PO q AM Monitor I/Os Augmentin/Zithromax Repeat CXR in AM Check resp panel if not done in ED Note that she has regularly scheduled outpatient cardiology appointment next Thursday Additional per resident documentation Resident Activity Tracking Resident Involvement: Resident Care Provided Care Provided: Adult Hospital Medicine
[2025-02-04] MEDS: ACETAMINOPHEN 325 MG TAB PO PRN (13:35)
[2025-02-04] MEDS ORDERED: DEXTROSE 50% 50 ML SYRINGE IV PRN (14:47)
[2025-02-04] MEDS ORDERED: GLUCOSE 40% GEL 15 GM TUBE PO PRN (14:47)
[2025-02-04] MEDS ORDERED: GLUCAGON FOR INJ 1 MG VIAL SQ PRN (14:47)
[2025-02-04] MEDS ORDERED: GLUCOSE 10 TAB/TUBE PO PRN (14:47)
[2025-02-04] MEDS ORDERED: CARBOHYDRATES FOR HYPOGLYCEMIA PO PRN (14:47)
[2025-02-04 15:37] VITALS: RESP 18
[2025-02-04] MEDS: allopurinoL 100 MG TAB PO SCH (15:45)
[2025-02-04] MEDS: amLODIPine BESYLATE 5 MG TAB PO SCH (15:45)
[2025-02-04] MEDS: METOPROLOL SUCC 50MG EXT REL TAB PO SCH (15:46)
[2025-02-04] MEDS: AZITHROMYCIN 250 MG TAB PO ONE (15:46)
[2025-02-04] MEDS: AMOXICILLIN/CLAVULANATE 875 MG TAB PO SCH (15:46)
[2025-02-04] MEDS: PANTOprazole 40 MG TAB PO SCH (15:46)
[2025-02-04] MEDS: GABAPENTIN 400 MG CAP PO SCH (15:47)
--- NOTE | 2025-02-04 16:04 | Emergency Department Note ---
Impression & Plan Acute congestive heart failure ED Provider Note CHIEF COMPLAINT: Shortness of breath HISTORY OF PRESENT ILLNESS: This 80-year-old female patient with past medical history of chronic heart failure, diabetes mellitus, peripheral neuropathy, hyperlipidemia, hypothyroidism, breast cancer, coronary artery disease presents emergency department with complaints of increased shortness of breath as of 1:00 this morning. She states she woke up to go to the bathroom and realized she was having difficulty lying flat. She has been coughing and states her throat hurts. She denies any chest pain. She states her weight has been trending up and she has significant swelling in her legs more than usual. She has not had any recent fevers REVIEW OF SYSTEMS: A review of systems was performed with positives and pertinent negatives listed in the history of present illness. 10 systems were reviewed and are otherwise negative. ALLERGIES: see below MEDICATIONS: see below PMH: see below SOCIAL HISTORY: see below DDx: . Congestive heart failure, pneumonia, acute coronary syndrome, pleurisy, fluid overload among others. PHYSICAL EXAM: Vital signs reviewed. General: Elderly, chronically ill-appearing 80-year-old female, no significant distress HEENT: No scleral icterus, PERRLA, neck supple. Atraumatic. Cardiovascular: regular rate and rhythm, no extra sounds Pulmonary: crackles to the bases, left greater than right to auscultation, normal work of breathing with a moist cough. Abdomen: Soft, obese, nontender, nondistended, positive bowel sounds. Musculoskeletal: Atraumatic, 2-3+ peripheral edema. Neurologic: Patient awake alert and oriented x 3, speech is clear Skin: Warm, dry, no rash EMERGENCY DEPARTMENT COURSE/MDM: This pt was evaluated and appeared to be in no distress. IV access was obtained and lab work was drawn. Pt was placed on the traffic monitor specialist. IV lasix 40 mg was administered and nitroglycerine paste was applied. CXR was performed and to my interpretation is c/w CHF rather than PNA. Lab work reveals a normal WBC and troponin. Pt began to diurese in the ED. Her case was d/w the hospitalist service for admission and further management. Pt and daughter at the bedside expressed an understanding of the plan and agreed. MONITORING: An order for cardiac monitoring was placed and the patient is noted to be in a normal sinus rhythm at 78 beats per minute. RADIOLOGY: chest x-ray to my interpretation reveals evidence of congestive heart failure, cardiomegaly. EKG:to my interpretation reveals a NSR at 91 bpm with premature suprventricular complexes. QTc 452, no acute ischemic change. DISPOSITION: admission Past Med/Surg History Problem List Pneumonia Acute congestive heart failure (Acute) Knee pain, right Proteinuria Arthralgia Acute UTI (Acute) Constipation Generalized weakness Chronic heart failure with preserved ejection fraction (HFpEF) Diabetes mellitus due to underlying condition with diabetic chronic kidney disease Type 2 diabetes mellitus, with long-term current use of insulin Current use of proton pump inhibitor Gout Diabetic peripheral neuropathy Hyperlipidemia Hypothyroid Vitamin D deficiency Degenerative arthritis of knee, bilateral Lumbar spondylosis Spondylolisthesis, lumbar region Intraductal carcinoma of breast Diabetes CAD (coronary artery disease) follows with Dr. Martins Osteoarthritis S/P lumpectomy, left breast (06/25/21) Left Breast Lumpectomy with Localization, Left Axillary [place] Lymph Node Biopsy Dr. Eldridge 06-25-21 Mucinous carcinoma of left breast Lumbar radicular pain Malignant neoplasm of central portion of left breast in female, estrogen receptor positive (Chronic 05/31/21) Lymphedema of arm (Chronic) Spinal stenosis of lumbar region Diastolic CHF Moderate mitral valve regurgitation Colon cancer screening Postnasal drip (Chronic) Cerumen impaction (Acute) Hearing loss Adult situational stress disorder Neuropathy Uncontrolled type 2 diabetes mellitus with diabetic neuropathy Diabetes mellitus type 2, insulin dependent Medical History MRSA bacteremia Acute kidney injury superimposed on CKD Spinal stenosis HX: breast cancer Hx of gout GERD (gastroesophageal reflux disease) DM type 2 (diabetes mellitus, type 2) History of skin cancer Hearing deficit Arthritis Osteopenia Urethral diverticulum Surgical History History of tooth extraction H/O heart artery stent History of colonoscopy History of left breast biopsy History of cataract surgery History of carpal tunnel surgery History of tonsillectomy Hx of appendectomy Family History Sister Ovarian cancer Breast cancer Mother Diabetes Hypertension Daughter Diabetes Hypertension Dyslipidemia Father Hypertension Skin cancer Diabetes Natural with unknown cause Sister Natural with unknown cause Dementia Sister Diabetes Brain tumor Coronary heart disease Daughter No problems noted. Son Diabetes Other No family history of adverse response to anesthesia Denies family history of Prostate cancer Myocardial infarction Colorectal cancer Stroke Social History Smoking Status: Never smoker Second Hand Exposure: No; Do You Dip or Chew Tobacco: No; Hx Alcohol Use: No Hx Substance Use: No Preferred Language: Venezuelan Communication Ability: Effective Visual Impairment: No Limitations Hearing Ability: Hard of Hearing Software Tester Required: No Beliefs That Will Affect Care: None marital status: Current Living Situation: Family Current Living Situation Comment: WITH DAUGHTER current occupational status: retired current occupation: Worked in [employer] How many Children do You have: 3 Feels Safe at Home: Yes Childhood Exposure to Second-Hand Smoke: No Diet: diabetic during the past year weight has: remained stable Dental Care, Regularly: Yes Physical Activity Frequency: 3-4 Times per Week Seatbelt Use: always Sunscreen Use: Yes Assistive Devices: Cane, Glasses and Hearing Aid - Bilateral Allergies Allergies Allergy/AdvReac Type Severity Reaction Status Date / Time cefdinir Allergy Intermediate Rash Verified 02/07/25 11:24 latex Allergy Intermediate Rash Verified 02/07/25 11:24 atorvastatin [From Lipitor] AdvReac Intermediate Joint Pain Verified 02/07/25 11:24 ezetimibe [From Vytorin] AdvReac Intermediate LEG PAIN Verified 02/07/25 11:24 simvastatin AdvReac Intermediate LEG Verified 02/07/25 11:24 PAIN/COULD NOT WALK tramadol AdvReac Intermediate constipatio Verified 02/07/25 11:24 n Home Meds Home Medications Medication Instructions Recorded Confirmed cholecalciferol (vitamin D3) 25 1,000 units PO QAM 04/28/19 02/07/25 mcg (1,000 unit) capsule vit A 1,000 unit-C 60 mg-E 30 1 tab PO QAM 04/28/19 02/07/25 unit-zinc oxid-selenium AA-copper tablet (Vision Formula(I-S-A-Zn-Se-Cu)) aspirin 81 mg tablet,delayed 81 mg PO HS 06/18/21 02/07/25 release (Adult Low Dose Aspirin) anastrozole 1 mg tablet 1 mg PO QAM 09/06/21 02/07/25 calcium carbonate (Calcium 600) 600 mg PO QAM 09/06/21 02/07/25 ferrous sulfate 325 mg (65 mg 325 mg PO Q OTHER DAY 01/12/24 02/07/25 iron) tablet (Feosol) flash glucose sensor (FreeStyle 01/12/24 02/07/25 Lexx 2 Sensor kit) biotin 5,000 mcg sublingual tablet 5,000 mcg sublingual QAM 05/25/24 02/07/25 cyanocobalamin (vitamin B-12) 2,500 mcg sublingual QAM 05/25/24 02/07/25 2,500 mcg sublingual tablet (Vitamin B-12) vitamin A 2,400 mcg capsule 2,400 mcg PO QAM 05/25/24 02/07/25 allopurinol 100 mg tablet 200 mg PO QAM 02/04/25 02/07/25 gabapentin 400 mg capsule 400 mg PO 6XD 02/04/25 02/07/25 Previous Rx's Medication Instructions Recorded OneTouch Verio Flex meter #1 ea 09/08/21 (blood-glucose meter) OneTouch Verio test strips (blood #400 ea 09/08/21 sugar diagnostic) omeprazole 20 mg capsule,delayed 20 mg PO QAM #100 caps 03/23/23 release amlodipine 5 mg tablet 5 mg PO QAM #100 tabs 06/10/24 BD Ultra-Fine Shante Pen Needle 32 #400 ea 06/27/24 gauge x 5/32" (pen needle, diabetic) metoprolol succinate 50 mg 50 mg PO QAM #100 tabs 06/28/24 tablet,extended release 24 hr insulin degludec 100 unit/mL (3 40 unit (0.4 mL) subcut QPM #45 mL 07/11/24 mL) subcutaneous pen (Tresiba FlexTouch U-100 insulin) insulin aspart U-100 100 unit/mL 18 unit (0.18 mL) subcut TIDM #15 08/24/24 (3 mL) subcutaneous pen (Novolog mL FlexPen U-100 Insulin aspart) levothyroxine 75 mcg tablet 75 mcg PO DAILY #30 tabs 02/06/25 furosemide 40 mg tablet 40 mg PO DAILY #120 tabs 02/07/25 Results & Data (ED) Vital Signs Vital Signs - 24 hr 02/04/25 08:42 02/04/25 08:58 02/04/25 09:30 Temperature 36.9 C Temperature Source Temporal Artery Scan Pulse Rate 92 H 91 H 81 Pulse Rate [Right Finger] Pulse Rate from SpO2 Sensor 81 Respiratory Rate 24 20 Respiratory Effort / Characteristics Non-Labored Spontaneous Respiratory Depth Normal Respiratory Pattern Regular Blood Pressure 200/71 H 162/78 H Blood Pressure [Right Arm] Blood Pressure Mean 114 106 Blood Pressure Mean [Right Arm] Blood Pressure Position Sitting Pulse Oximetry 93 95 Oxygen Delivery Method Room Air Sepsis Recent Fever Within 48 Hours No Sepsis New/Unexplained Change in Mental Status N/A Sepsis Action Taken by Nursing No Action Required 02/04/25 10:00 02/04/25 10:20 02/04/25 10:30 Temperature Temperature Source Pulse Rate 79 80 Pulse Rate [Right Finger] Pulse Rate from SpO2 Sensor Respiratory Rate 23 17 Respiratory Effort / Characteristics Respiratory Depth Respiratory Pattern Blood Pressure 168/83 H 176/88 H Blood Pressure [Right Arm] Blood Pressure Mean 113 106 Blood Pressure Mean [Right Arm] Blood Pressure Position Pulse Oximetry 94 94 93 Oxygen Delivery Method Room Air Room Air Room Air Sepsis Recent Fever Within 48 Hours Sepsis New/Unexplained Change in Mental Status Sepsis Action Taken by Nursing 02/04/25 11:27 02/04/25 12:19 Temperature Temperature Source Pulse Rate Pulse Rate [Right Finger] 82 78 Pulse Rate from SpO2 Sensor Respiratory Rate 20 20 Respiratory Effort / Characteristics Non-Labored Spontaneous Non-Labored Spontaneous Respiratory Depth Normal Normal Respiratory Pattern Regular Regular Blood Pressure Blood Pressure [Right Arm] 158/97 H 149/80 H Blood Pressure Mean Blood Pressure Mean [Right Arm] 117 103 Blood Pressure Position Pulse Oximetry 93 94 Oxygen Delivery Method Room Air Room Air Sepsis Recent Fever Within 48 Hours Sepsis New/Unexplained Change in Mental Status Sepsis Action Taken by Prison Medications Current Medication List: was personally reviewed by me Laboratory Data Attestation: I reviewed the patient's lab results. 02/05/25 05:48 02/05/25 05:48 Lab Results 02/04/25 02/04/25 02/04/25 Range/Units 08:52 09:22 10:47 WBC Cancelled 9.58 RBC Cancelled 3.69 L Hgb Cancelled 11.5 L Hct Cancelled 34.5 L MCV Cancelled 93.5 MCH Cancelled 31.2 MCHC Cancelled 33.3 RDW Std Deviation Cancelled 49.1 H RDW Coeff of Michael Cancelled 14.4 Plt Count Cancelled 209 MPV Cancelled 10.3 Immature Gran % (Auto) Cancelled 0.3 Neut % (Auto) Cancelled 80.3 Lymph % (Auto) Cancelled 12.8 Ellis % (Auto) Cancelled 5.8 Eos % (Auto) Cancelled 0.6 Baso % (Auto) Cancelled 0.2 Neut # (Auto) Cancelled 7.68 H Lymph # (Auto) Cancelled 1.23 Ellis # (Auto) Cancelled 0.56 Eos # (Auto) Cancelled 0.06 Baso # (Auto) Cancelled 0.02 Immature Gran # (Auto) Cancelled 0.03 Absolute Nucleated RBC Cancelled Nucleated RBC % (auto) Cancelled Neutrophils % (Manual) Cancelled Band Neutrophils % Cancelled Lymphocytes % (Manual) Cancelled Prolymphocyte % Cancelled Reactive Lymphs % (Man) Cancelled Monocytes % (Manual) Cancelled Eosinophils % (Manual) Cancelled Basophils % (Manual) Cancelled Metamyelocytes % (Man) Cancelled Myelocytes % (Man) Cancelled Promyelocytes % (Man) Cancelled Blast Cells % (Manual) Cancelled Plasma Cell % (Manual) Cancelled Other Cells % Cancelled Nucleated RBC % Cancelled Neutrophils # (Manual) Cancelled Band Neutrophils # Cancelled Total Absolute Neuts Cancelled Lymphocytes # (Manual) Cancelled Prolymphocyte # Cancelled Reactive Lymphs # Cancelled Total Abs Lymphocytes Cancelled Monocytes # (Manual) Cancelled Eosinophils # (Manual) Cancelled Basophils # (Manual) Cancelled Metamyelocytes # (Man) Cancelled Myelocytes # (Manual) Cancelled Promyelocytes # (Man) Cancelled Blast Cells # (Man) Cancelled Plasma Cell # (Manual) Cancelled Other Cells # Cancelled Nucleated RBCs # (Man) Cancelled Hypersegmented Neuts Cancelled Hyposegmented Neuts Cancelled Hypogranular Neuts Cancelled Large Granular Lymphs Cancelled # Lrg Granular Lymphs Cancelled Hairy Cells Cancelled Smudge Cells Cancelled Toxic Granulation Cancelled Toxic Vacuolation Cancelled Dohle Bodies Cancelled Jace Rods Cancelled Platelet Estimate Cancelled Hypogranular Platelets Cancelled Giant Platelets Cancelled Platelet Satelliting Cancelled RBC Morphology Cancelled Polychromasia Cancelled Hypochromasia Cancelled Poikilocytosis Cancelled Basophilic Stippling Cancelled Anisocytosis Cancelled Microcytosis Cancelled Macrocytosis Cancelled Spherocytes Cancelled Pappenheimer Bodies Cancelled Sickle Cells Cancelled Target Cells Cancelled Tear Drop Cells Cancelled Ovalocytes Cancelled Stomatocytes Cancelled [place] Bodies Cancelled Echinocytes Cancelled Acanthocytes (Spur) Cancelled Rouleaux Cancelled RBC Agglutinates Cancelled Schistocytes Cancelled Sezary Cell Cancelled PT Cancelled 10.7 INR Cancelled 1.0 APTT Cancelled 32 H PTT Ratio Cancelled 1.2 Sodium 138 (136-145) mmol/L Potassium 4.5 (3.5-5.1) mmol/L Chloride 105 (98-107) mmol/L Carbon Dioxide 28 (21-32) mmol/L Anion Gap 5 (3-11) BUN 29 H (6-23) mg/dl Creatinine 0.90 (0.6-1.2) mg/dl Est Cr Clr Drug Dosing 52.4 ml/min eGFR 63.83 BUN/Creatinine Ratio 32.2 H (10-20) Glucose 160 H (70-99(Fasting)) mg/dl Calcium 8.9 (8.6-10.3) mg/dl Magnesium 1.9 (1.7-2.4) mg/dl Total Bilirubin 0.8 (0.2-1.0) mg/dl AST 19 (13-39) U/L ALT 16 (7-52) U/L Alkaline Phosphatase 71 (34-104) U/L Troponin I High Sens 12.7 (0-14) pg/ml B-Natriuretic Peptide 302 H (0-100) pg/ml Total Protein 6.5 (6.0-8.3) gm/dl Albumin 3.6 (3.4-5.0) gm/dl Globulin 2.9 (2.5-4.0) gm/dl Albumin/Globulin Ratio 1.2 (0.9-2) Adenovirus (PCR) Not Detected (NotDetected) B. pertussis DNA (PCR) Not Detected (NotDetected) B.parapertussis DNA PCR Not Detected (NotDetected) C. pneumoniae DNA (PCR) Not Detected (NotDetected) Coronavirus OC43 (PCR) Not Detected (NotDetected) Coronavirus HKU1 (PCR) Not Detected (NotDetected) Coronavirus 229E (PCR) Not Detected (NotDetected) SARS-CoV-2 (PCR) Not Detected (NotDetected) Coronavirus NL63 (PCR) Not Detected (NotDetected) Human Metapneumovir PCR Not Detected (NotDetected) Influenza Type A (PCR) Not Detected (NotDetected) Influenza Type B (PCR) Not Detected (NotDetected) M. pneumoniae (PCR) Not Detected (NotDetected) Parainfluenza 1 (PCR) Not Detected (NotDetected) Parainfluenza 2 (PCR) Not Detected (NotDetected) Parainfluenza 3 (PCR) Not Detected (NotDetected) Parainfluenza 4 (PCR) Not Detected (NotDetected) RSV (PCR) Not Detected (NotDetected) Entero/Rhino (PCR) Not Detected (NotDetected) Blood Parasites ID Cancelled Administered Medications Discontinued Medications Acetaminophen (Acetaminophen 325 Mg Tab) 650 mg PO Q4H PRN PRN Reason: pain/fever Stop: 03/06/25 12:48 Last Admin: 02/04/25 13:35 Dose: 650 mg Documented By: JOHN Allopurinol (Allopurinol 100 Mg Tab) 200 mg PO [facility] Stop: 03/06/25 14:59 Last Admin: 02/05/25 09:13 Dose: 200 mg Documented By: Admin: 02/04/25 15:45 Dose: 200 mg Documented By: BUSTER Amlodipine Besylate (Amlodipine Besylate 5 Mg Tab) [facility] Stop: 03/06/25 14:59 Last Admin: 02/05/25 09:13 Dose: 5 mg Documented By: Admin: 02/04/25 15:45 Dose: 5 mg Documented By: BUSTER Amoxicillin/Clavulanate Potassium (Amoxicillin/Clavulanate 875 Mg Tab) 1 tab PO BIDM [facility]; Protocol Stop: 02/09/25 15:14 Last Admin: 02/05/25 09:12 Dose: 1 tab Documented By: Admin: 02/04/25 15:46 Dose: 1 tab Documented By: BUSTER Anastrozole (Anastrozole 1 Mg Tab) [facility] [place] Stop: 03/06/25 14:59 Last Admin: 02/05/25 09:13 Dose: 1 mg Documented By: ROCKY Co-signed By: FIGUEROA Admin: 02/04/25 17:48 Dose: 1 mg Documented By: BUSTER Co-signed By: LEON Aspirin (Aspirin 81 Mg Ectab) 81 mg PO HS [facility] Stop: 03/06/25 20:59 Last Admin: 02/04/25 20:41 Dose: 81 mg Documented By: SHIRLEY Azithromycin (Azithromycin 250 Mg Tab) 500 mg PO NOW ONE Stop: 02/04/25 15:16 Last Admin: 02/04/25 15:46 Dose: 500 mg Documented By: BUSTER Azithromycin (Azithromycin 250 Mg Tab) 250 mg PO [facility] Stop: 02/10/25 08:59 Last Admin: 02/05/25 09:12 Dose: 250 mg Documented By: ROCKY Calcium Carbonate (Calcium Carbonate 1250mg Tab) 1 tab PO [facility] Stop: 03/07/25 08:59 Last Admin: 02/05/25 09:13 Dose: 1 tab Documented By: ROCKY Cyanocobalamin (Cyanocobalamin (B-12) 2,500 Mcg Tablet) 2,500 mcg SL [facility] Stop: 03/07/25 08:59 Last Admin: 02/05/25 09:12 Dose: 2,500 mcg Documented By: ROCKY Ferrous Sulfate (Ferrous Sulfate 325 Mg Tab) 325 mg PO Q2D@0900 [facility] Stop: 03/07/25 08:59 Last Admin: 02/05/25 09:12 Dose: 325 mg Documented By: ROCKY Furosemide (Furosemide 40 Mg/4 Ml Vial) 40 mg IV ONE ONE Stop: 02/04/25 09:34 Last Admin: 02/04/25 09:55 Dose: 40 mg Documented By: MONICA Furosemide (Furosemide 40 Mg/4 Ml Vial) 40 mg IV ONE ONE Stop: 02/04/25 17:01 Last Admin: 02/04/25 17:47 Dose: 40 mg Documented By: BUSTER Gabapentin (Gabapentin 400 Mg Cap) 400 mg PO [id number] [facility] Stop: 03/06/25 14:59 Last Admin: 02/05/25 06:04 Dose: 400 mg Documented By: Admin: 02/04/25 23:35 Dose: 400 mg Documented By: Admin: 02/04/25 20:41 Dose: 400 mg Documented By: Admin: 02/04/25 15:47 Dose: 400 mg Documented By: BUSTER Insulin Aspart (Insulin Aspart Per Unit Charge) 0 units SC ACHS [facility] Stop: 03/06/25 16:29 Last Admin: 02/05/25 09:10 Dose: 3 units Documented By: ROCKY Co-signed By: FIGUEROA Admin: 02/04/25 20:28 Dose: Not Given Documented By: Admin: 02/04/25 17:47 Dose: 5 units Documented By: BUSTER Co-signed By: LEON Insulin Glargine (Lantus Per Unit Charge) 7 units SQ BID [facility] Stop: 03/06/25 20:59 Last Admin: 02/05/25 09:11 Dose: 7 units Documented By: ROCKY Co-signed By: FIGUEROA Admin: 02/04/25 20:41 Dose: 7 units Documented By: SHIRLEY Co-signed By: OMID Levothyroxine Sodium (Levothyroxine Sodium 75 Mcg Tablet) 75 mcg PO DAILYBB [facility] Stop: 03/07/25 06:29 Last Admin: 02/05/25 06:04 Dose: 75 mcg Documented By: SHIRLEY Metoprolol Succinate (Metoprolol Succ 50mg Ext Rel Tab) 50 mg PO [facility] Stop: 03/06/25 15:14 Last Admin: 02/05/25 09:13 Dose: 50 mg Documented By: Admin: 02/04/25 15:46 Dose: 50 mg Documented By: BUSTER Multivitamins/Minerals (Cerovite Adv Formula Tab) 1 tab PO [facility] Stop: 03/07/25 08:59 Last Admin: 02/05/25 09:13 Dose: 1 tab Documented By: ROCKY Nitroglycerin (Nitroglycerin 2% Ointment 30gm Tube) 0.5 inch EXT NOW STA Stop: 02/04/25 09:34 Last Admin: 02/04/25 09:54 Dose: 0.5 inch Documented By: MONICA Pantoprazole Sodium (Pantoprazole 40 Mg Tab) 40 mg PO [facility] Stop: 03/06/25 15:14 Last Admin: 02/05/25 09:12 Dose: 40 mg Documented By: Admin: 02/04/25 15:46 Dose: 40 mg Documented By: BUSTER Vitamin D (Cholecalciferol 25 Mcg (1000 Units) Tab) [facility] [place] Stop: 03/07/25 08:59 Last Admin: 02/05/25 09:12 Dose: 25 mcg Documented By: JDR Imaging Data Radiologist's Impression: Chest X-Ray 02/04/25 09:27 Clinical History: Shortness of breath Technique: A frontal view of the chest was obtained Comparison is made to the prior examination dated 05/25/2024 Findings: There is new alveolar consolidation in the right lower lobe, with multifocal interstitial prominence in the remainder of the lungs bilaterally. This is consistent with pneumonia. The heart is mildly enlarged. No pleural effusion or pneumothorax is seen. There is no definite pulmonary nodule. No fracture is noted. No foreign body is seen Impression: 1. Right worse than left pneumonia 2. Mild cardiomegaly ACT 112: Positive. There are findings on this exam that require communication between the performing entity and the patient following Patient Test Result Information Act ([place] ACT 112) guidelines. Electronically signed by Nate Armendariz 02-04-2025 09:58 AM Discharge Plan Visit Data Chief Complaint: Shortness of Breath/Dyspnea Stated Complaint: SOB, LEG SWELLING ED Provider: Sherin Velasco Discharge Problem: Acute congestive heart failure Patient Disposition: Admitted As Inpatient Condition: Fair Discharge Instructions Interventions: ED Discharge Assessment Last Done: 02/04/25 14:11 Discharge Problem: Acute congestive heart failure Qualifiers: Heart failure type: unspecified Qualified Code(s): I50.9 - Heart failure, unspecified
[2025-02-04 16:45] LABS: Adenovirus PCR Not Detected (NotDetected); Bordetella parapertussis PCR Not Detected (NotDetected); Bordetella pertussis PCR Not Detected (NotDetected); Chlamydia pneumoniae PCR Not Detected (NotDetected); Coronavirus 229E PCR Not Detected (NotDetected); Coronavirus CoV-2 (COVID19)PCR Not Detected (NotDetected); Coronavirus HKU1 PCR Not Detected (NotDetected); Coronavirus NL63 PCR Not Detected (NotDetected); Coronavirus OC43PCR Not Detected (NotDetected); Human Metapneumovirus PCR Not Detected (NotDetected); Influenza A PCR Not Detected (NotDetected); Influenza B PCR Not Detected (NotDetected); Mycoplasma pneumoniae PCR Not Detected (NotDetected); Parainfluenza Virus 1 PCR Not Detected (NotDetected); Parainfluenza Virus 2 PCR Not Detected (NotDetected); Parainfluenza Virus 3 PCR Not Detected (NotDetected); Parainfluenza Virus 4 PCR Not Detected (NotDetected); Respiratory Syncytial VirusPCR Not Detected (NotDetected); Rhinovirus/Enterovirus PCR Not Detected (NotDetected)
[2025-02-04] MEDS: INSULIN ASPART PER UNIT CHARGE SC SCH (17:47)
[2025-02-04] MEDS: ANASTROZOLE 1 MG TAB PO SCH (17:48)
[2025-02-04 19:01] LABS: Appearance Urine Clear (Clear); Bacteria Urine Automated None Seen (None Seen); Bilirubin Urine Negative (Negative); Blood Urine Negative (Negative); Cast Urine Automated 0-2 /lpf (0-2); Color Urine Yellow; Epithelial Cell Urine Auto 0-2 /hpf (0-2); Glucose Urine UA Negative (Negative); Ketones Urine Negative (Negative); Leukocyte Esterase Urine Negative (Negative); Nitrite Urine Negative (Negative); Protein Urine 1+ (Negative); RBC Urine Automated 0-2 /hpf (0-2); Urobilinogen Urine Negative (Negative); WBC Urine Automated 0-5 /hpf (0-5)
[2025-02-04] MEDS ORDERED: MICONAZOLE NITRATE POWDER 85 GM EXT PRN (20:22)
[2025-02-04] MEDS: LANTUS PER UNIT CHARGE SQ SCH (20:41)
[2025-02-04] MEDS: ASPIRIN 81 MG ECTAB PO SCH (20:41)
[2025-02-05 03:29] VITALS: TEMP 97.9
[2025-02-05] MEDS: LEVOTHYROXINE SODIUM 75 MCG TABLET PO SCH (06:04)
[2025-02-05 06:34] LABS: Basophils # (auto) 0.03 K/uL (0.00-0.20); Basophils % (auto) 0.4 %; Eosinophils # (auto) 0.11 K/uL (0.00-0.50); Eosinophils % (auto) 1.5 %; Hematocrit (blood only) 34.1 % (37.0-47.0); Hemoglobin 11.5 g/dl (12.0-16.0); Immature Granulocytes # (auto) 0.03 K/uL (0.01-0.20); Immature Granulocytes % (auto) 0.4 %; Lymphocytes # (auto) 1.53 K/uL (1.20-3.40); Lymphocytes % (auto) 20.3 %; Mean Corpuscular Hemoglobin 31.6 pg (25.0-34.0); Mean Corpuscular Hgb Conc 33.7 g/dL (32.0-36.0); Mean Corpuscular Volume 93.7 fL (80.0-100.0); Mean Platelet Volume 10.1 fL (9.4-12.4); Monocytes # (auto) 0.43 K/uL (0.11-0.59); Monocytes % (auto) 5.7 %; Neutrophils # (auto) 5.39 K/uL (1.40-6.50); Neutrophils % (auto) 71.7 %; Platelet Count 208 K/uL (130-400); RDW Coefficient of Variation 13.9 % (11.5-14.5); RDW Standard Deviation 47.7 fL (36.4-46.3); Red Blood Count 3.64 M/uL (4.20-5.40); White Blood Count 7.52 K/ul (4.8-10.8)
[2025-02-05 06:57] LABS: BUN Creatinine Ratio 31.2 (10-20); Calcium 8.9 mg/dl (8.6-10.3); Creatinine Clr Calc Pharmacy 49.9 ml/min; Magnesium 1.8 mg/dl (1.7-2.4); Potassium 4.3 mmol/L (3.5-5.1)
[2025-02-05 07:23] VITALS: BP 173/77; O2SAT 95
[2025-02-05 08:57] LABS: Estimated Average Glucose 151 mg/dl; Hemoglobin A1C 6.9 % (4.5-5.6)
[2025-02-05] MEDS: AZITHROMYCIN 250 MG TAB PO SCH (09:12)
[2025-02-05] MEDS: CYANOCOBALAMIN (B-12) 2,500 MCG TABLET SL SCH (09:12)
[2025-02-05] MEDS: FERROUS SULFATE 325 MG TAB PO SCH (09:12)
[2025-02-05] MEDS: CHOLECALCIFEROL 25 MCG (1000 UNITS) TAB PO SCH (09:12)
[2025-02-05] MEDS: CEROVITE ADV FORMULA TAB PO SCH (09:13)
[2025-02-05] MEDS: CALCIUM CARBONATE 1250MG TAB PO SCH (09:13)
--- NOTE | 2025-02-05 09:23 | Electrocardiogram Report ---
Test Reason : Blood Pressure : */* mmHG Vent. Rate : 91 BPM Atrial Rate : 91 BPM P-R Int : 134 ms QRS Dur : 80 ms QT Int : 368 ms P-R-T Axes : 81 52 65 degrees QTcB Int : 452 ms Sinus rhythm with Premature supraventricular complexes Otherwise normal ECG When compared with ECG of 25-May-2024 12:42, Premature supraventricular complexes are now Present Confirmed by Jannet Hollins (Marcela) on 02/05/2025 9:22:33 AM Referred By: REFERRED SELF Confirmed By: Jannet Hollins
--- NOTE | 2025-02-05 09:48 | XRay Report ---
HISTORY: Pneumonia. TECHNIQUE: PA and lateral views of the chest. COMPARISON: Chest radiograph dated 02/04/2025. FINDINGS: Similar right lower lung airspace opacity concerning for pneumonia. The left lung is clear. No pneumothorax or significant effusion. Normal heart size. Left-sided aortic arch. Midline trachea.Calcific tendinopathy of the distal right rotator cuff. Degenerative changes of the shoulders. Mild degenerative changes of the spine. Following anterior osteophytosis in the spine could represent diffuse idiopathic skeletal hyperostosis or ankylosing spondylitis. IMPRESSION: * Right lower lobe opacity concerning for pneumonia. Follow-up PA and lateral chest radiographs are recommended in 6 to 8 weeks to ensure complete resolution. * Clear left lung. * Normal heart size. * Additional chronic and/or incidental findings as above. Electronically signed by Terrence Xavier 02-05-2025 09:48 AM
--- NOTE | 2025-02-05 10:44 | Discharge Summary ---
Date of Service February 05, 2025 Admission HPI Per Admitting Provider Farida is a 79 y/o F with a PMH of hyperlipidemia, type II DM, diabetic neuropathy, CKD, CAD, hypothyroidism, GERD, gout, lumbar spondylosis, and vitamin D deficiency who presented to [facility] ED on with complaints increased SOB for past couple of weeks and more severe last night when she had to wake up and sit on chair suddenly around 2 am last night. She felt better after lying on the chair. Endorses some CP while deep breathing in and out but not severe central radiating chest pain. She has h/o CAD, does not feel like it was heart attack. Waking up this morning, her legs were huge, had been noticing increased weight since quite some time and did not realize it could be fluids. Lying with head elevated is making her feel obviously better. Mentions some headaches but nothing unusual. No blurring of vision, no belly pain, no urine sx, had BM yesterday. Missed morning dose of meds as she came in here directly. After presenting to ED- Vitals stable, BP at goal, Sats maintaining at RA. She was given 40 mg of IV lasix and is feeling better when I saw her. Chest Xray reports some pneumonia on right side, however correlating with her sx and image makes me feel like there is fluids BL, of course more on right side. PMH: reviewed Drug and allergy reviewed: allergic to Cefdenir. Admission Exam Per Admitting Provider Constitutional: Well appearing, No acute distress, Pale looking. no facial swelling. Lying with head elevated, comfortable looking. No O2. HEENT: Atraumatic, Normocephalic, No conjunctival injection CVS: S1 S2, Systolic murmur +, Regular Rhythm, BL LE pitting edema Respiratory: BL equal air decreased with NVBS. Basal rales BL R>L . No increased work of breathing GI: Soft, Nondistended, Nontender, Normal Bowel sounds + MSK: No gross deformities noted Skin: Warm, Dry, Lesions resembling Seborrheic keratosis in back. Neuro: Alert, Oriented to TPP, No Focal deficit Psych: Mood and Affect congruent, Cooperative on exam Principal Diagnosis Acute CHF CAP Discharge Exam Constitutional: Well appearing, No acute distress, Pale looking. no facial swelling. Comfortable with get up and go test. HEENT: Atraumatic, Normocephalic, No conjunctival injection CVS: S1 S2, Systolic murmur +, Regular Rhythm, BL LE pitting edema better than yesterday Respiratory: BL equal air decreased with NVBS. Basal rales BL R>L . No increased work of breathing GI: Soft, Nondistended, Nontender, Normal Bowel sounds + MSK: No gross deformities noted Skin: Warm, Dry, Lesions resembling Seborrheic keratosis in back. Neuro: Alert, Oriented to TPP, No Focal deficit Psych: Mood and Affect congruent, Cooperative on exam Discharge Data Allergies Allergy/AdvReac Type Severity Reaction Status Date / Time cefdinir Allergy Intermediate Rash Verified 02/04/25 10:13 latex Allergy Intermediate Rash Verified 02/04/25 10:13 atorvastatin [From Lipitor] AdvReac Intermediate Joint Pain Verified 02/04/25 10:13 ezetimibe [From Vytorin] AdvReac Intermediate LEG PAIN Verified 02/04/25 10:13 simvastatin AdvReac Intermediate LEG Verified 02/04/25 10:13 PAIN/COULD NOT WALK tramadol AdvReac Intermediate constipatio Verified 02/04/25 10:13 n Consultations 02/04/25 13:03 ED Decision to Admit Stat Hospital Course (1) Acute congestive heart failure: (2) Chronic heart failure with preserved ejection fraction (HFpEF): (3) Diabetes mellitus due to underlying condition with diabetic chronic kidney disease: (4) Type 2 diabetes mellitus, with long-term current use of insulin: (5) Diabetic peripheral neuropathy: (6) Hyperlipidemia: (7) Hypothyroid: (8) CAD (coronary artery disease): Charles Iqbal is a 79 y/o F with a PMH of hyperlipidemia, type II DM, diabetic neuropathy, CKD, CAD, hypothyroidism, GERD, gout, lumbar spondylosis, and rosmery min D deficiency admitted with acute heart failure on chronic HF and Right sided LL Pneumonia. Endorses sx worsening in last couple of weeks, and very severe since last night. Baseline vitals stable, no new need of O2, admitted for observation. #Acute HF with chronic CHF with preserved EF exacerbation - Improved overnight with lasix. - Echo baseline( S/P lasix) - Electrolytes: WNL. - Continue home lasix. #Pneumonia: Endorses productive cough for couple of days. Consolidation in right LL likely CAP. Will continue Outpatient Pne regimen: Augmentin and Azithromycin. Repeat Chest Xay in 6 weeks. #Type II DM: - Last HBA1C: 6.9 - Continue home regimen. Total Time Total Time Spent Total Time Spent (In Minutes): Richie Alfredo DO, attending physician, spent 30 minutes myself seeing the patient, reviewing the chart, and documenting today. Discharge Plan Discharge Items Patient Disposition: Home - Self-Care Reason For Visit: ACUTE CONGESTIVE HEART FAILURE Discharge Diagnosis: CHF RLL PNE Activity: Resume your previous activity Non-emergency contact: Primary Care Provider and [employer] Information [employer] Call non-emergency contact if: your symptoms worsen Follow-up/Referrals: Bashir Garcia MD [Primary Care Provider] - 02/14/25 2:15 pm (appt. is with Sahra Garcia PA-C.) Diet: Carb Consistent or DM2 and Heart Healthy Addtl Attending Provider Instructions: You were admitted to the hospital for acute congestive heart failure, aggravated on your chronic heart failure ans Community acquired pneumonia. You were treated with Lasix through your vein, oral antibiotics. Your vitals were pretty stable, Echocardiogram was reassuring as well, hence we are sending you home with your home medications. A discharge summary will be sent to your primary care physician to ensure continuity of care. Please bring this discharge summary with you to your next office appointment so that your provider can review it at that time. Medications: Your medication list has been reviewed and reconciled upon discharge to ensure accuracy and continuity of care. An updated list of all your medications is included with your hospital discharge paperwork. Please review this list closely and make note of any changes to your medications. - Augmentin 875 mg twice daily for total 6 more days. - Azithromycin 250 mg once daily for 4 more days. - NO NEW CHANGE IN YOUR PREVIOUS HOME MEDICATIONS. CONTINUE PREVIOUS DOSE. 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 - Make a follow up appointment with your PCP within the next week. It is very important that you follow up with them shortly after discharge from the hospital. - Follow up with your endocrine at scheduled. - Keep all of your follow up appointments as already scheduled. If you cannot make an appointment, notify your provider. CONTACT YOUR PRIMARY CARE PROVIDER if you experience any of the following: - Difficulty following your treatment plan - Difficulty taking any of your medications CALL 911 OR GO TO THE EMERGENCY DEPARTMENT if you experience any of the following: - Sudden, severe abdominal pain or nausea/vomiting - Severe chest pain or chest pain that radiates to your jaw or arm - Sudden, severe shortness of breath or difficulty breathing Pending Studies at Discharge: No Stand-Alone Forms: My [facility], Smoking Cessation Medications and DC Order Prescriptions: New amoxicillin-pot clavulanate 875-125 mg tablet 1 tab PO BID 6 Days Qty: 12 0RF azithromycin 250 mg tablet 250 mg PO DAILY 4 Days Qty: 4 0RF Rx Instructions: start on day 2 of therapy Continued omeprazole 20 mg capsule,delayed release(DR/EC) 20 mg PO QAM Qty: 100 5RF amlodipine 5 mg tablet 5 mg PO QAM Qty: 100 3RF (DME) pen needle, diabetic [BD Ultra-Fine Shante Pen Needle] 32 gauge x 5/32" needle See Dose Instructions .ROUTE .MEDSUPPLY Qty: 400 3RF Rx Instructions: use to inject four times day metoprolol succinate 50 mg tablet extended release 24 hr 50 mg PO QAM Qty: 100 3RF levothyroxine 75 mcg tablet 75 mcg PO DAILY Qty: 30 5RF insulin aspart U-100 [Novolog FlexPen U-100 Insulin] 100 unit/mL (3 mL) insulin pen 18 unit subcut TIDM Qty: 15 5RF Rx Instructions: more if blood sugar is elevated ferrous sulfate [Feosol] 325 mg (65 mg iron) tablet 325 mg PO Q OTHER DAY (DME) FreeStyle Lexx 2 Sensor Kit See Rx Instructions .Route Rx Instructions: As directed (DME) blood-glucose meter [OneTouch Verio Flex meter] [facility] See Rx Instructions .Route Qty: 1 0RF Rx Instructions: use to test 4 x daily (DME) OneTouch Verio test strips Strip See Rx Instructions .ROUTE .MEDSUPPLY Qty: 400 3RF Rx Instructions: test 4 x daily anastrozole 1 mg tablet 1 mg PO QAM calcium carbonate [Calcium 600] 600 mg calcium (1,500 mg) tablet 600 mg PO QAM cholecalciferol (vitamin D3) 1,000 unit capsule 1,000 units PO QAM Vision Formula(O-Z-E-Zn-Se-Cu) 1,000 unit-60 mg-30 unit tablet 1 tab PO QAM furosemide 40 mg tablet 40 mg PO DAILY insulin degludec [Tresiba FlexTouch U-100] 100 unit/mL (3 mL) insulin pen 40 unit subcut QPM Qty: 45 2RF aspirin [Adult Low Dose Aspirin] 81 mg tablet,delayed release (DR/EC) 81 mg PO HS vitamin A 2,400 mcg capsule 2,400 mcg PO QAM cyanocobalamin (vitamin B-12) [Vitamin B-12] 2,500 mcg tablet, sublingual 2,500 mcg sublingual QAM biotin 5,000 mcg tablet, sublingual 5,000 mcg sublingual QAM gabapentin 400 mg capsule 400 mg PO 6XD Rx Instructions: 400 mg orally five times a day; allopurinol 100 mg tablet 200 mg PO QAM Discharge Orders: Discharge Order- CHF (Routine); Ordered 02/05/25 Ordered By: Jessica Whipple/Other Patient Handouts: HF Goals for Management, Heart Failure: Tracking Your Weight, Heart Failure: Being Active, Hypoglycemia (Low Blood Sugar), Managing Type 2 Diabetes, Heart Failure: Know Your Baselines, Heart Failure Post Hospital Admission Data Admit Date/Time: 02/04/25 12:50 Attending Provider: Richie Romero Admit Provider: Jessica Marie Primary Care Provider: Bashir Garcia Other Providers: Jose Manuel Pettit Other Interventions: Discharge Summary Assessment (RN) Last Done: 02/05/25 11:11 Supervising Physician Co-Signing Physician Notes ATTESTATION I also saw the patient and confirmed valencia portions of the history and exam. I agree with the impression and plan in the resident documentation, and as summarized below. She feels much better today and would like to go home. Negative 2.3L, down 2kg since yesterday. She notes marked decreased of edema in her LE. EXAM VS reviewed Alert and oriented. NAD Talks in full and complete sentences without pause. CV RRR Lungs decreased right base. LE edema is noticeably improved DATA Labs BUN 29/Cr 0.93 Imaging CXR suggests right sided consolidation IMPRESSION & PLAN Pneumonia HFpEF, Acute on chronic Clinical history, exam, and imaging consistent with pneumonia and acute on chronic diastolic heart failure Suspect developed infection first, with secondary decompensation of HF Improved with Lasix 40 gm IV x 2 yesterday with nice diuresis Resume home Lasix 40 mg q AM Folllow up as scheduled with cardiology on Thursday Augmentin/Zithromax as outpatient CXR in 4 weeks; sooner if symptoms worsen Additional per resident documentation Resident Activity Tracking Resident Involvement: Resident Care Provided Care Provided: Adult Hospital Medicine
[2025-02-05 11:13] VITALS: PULSE 72
== END 2025-02-05 12:46 | disposition home or self-care (01) ==
LOC: ED 08:37 → 2N 08:37